=== PATIENT | female | born 1965 | race African-American/Black ===

== ENCOUNTER 2020-07-09 14:45 | Inpatient (IN) | payer SELFPAY ==
[2020-07-09 15:42] LABS: Hemoglobin 4.9 g/dL (12.0-16.0); Mean Corpuscular HGB CONC 36.3 g/dL (32.0-36.0); Mean Corpuscular Hemoglobin 41.8 pg (27.0-31.0); Platelet Count 32 thou/uL (130-400); RBC Distribution Width 12.6 % (11.5-14.5); Red Blood Cell (RBC) Count 1.17 mill/uL (4.20-5.40); White Blood Cell (WBC) Count 5.5 thou/uL (4.8-10.8)
[2020-07-09 15:55] LABS: Band 3 % (5-11); Eosinophils 1 % (0-10); Lymphocytes 21 % (21-51); MDiff Complete? YES; Macrocytosis SLIGHT = 6-15 cells (100X) (0-5/hpf); Metamyelocyte 1 % (0-0); Monocytes 5 % (0-10); Neutrophil 68 % (42-75); Nucleated RBC 1 % (0); Platelet Morphology Comment Appears Decreased; Polychromasia MODERATE = 3-4 cells (100X) (0-2/hpf); Reflex for Review?? NO
[2020-07-09 16:13] LABS: Chloride 98 mmol/L (98-107); Sodium 138 mmol/L (136-145)
[2020-07-09 16:14] LABS: Calcium 9.3 mg/dL (7.8-10.44)
[2020-07-09 16:15] LABS: Globulin 4.5 g/dL (2.4-3.5); Glucose 152 mg/dL (70-105); Protein, Total 7.5 g/dL (6.0-8.3)
[2020-07-09 16:16] LABS: Anion Gap 19 mmol/L (10-20); Bilirubin, Total 14.6 mg/dL (0.2-1.2); Carbon Dioxide 24 mmol/L (22-29)
[2020-07-09 16:18] LABS: Alkaline Phosphatase 116 U/L (40-110); Calc. Creatinine Clearance 0 mL/min (70-130)
[2020-07-09 16:19] LABS: BUN (Urea Nitrogen) 12 mg/dL (9.8-20.1)
[2020-07-09 16:20] LABS: AST (SGOT) 70 U/L (5-34); CKMB 0.5 ng/mL (0-6.6)
[2020-07-09 16:21] LABS: ALT (SGPT) 19 U/L (8-55); Lipase 14 U/L (8-78)
[2020-07-09 19:54] LABS: Troponin I 0.136 ng/mL (< 0.028)
[2020-07-09] MEDS ORDERED: Ondansetron ODT 4 MG TAB SL PRN (20:45)
[2020-07-09] MEDS ORDERED: Ondansetron PF 4 MG/2 ML Vial IVP PRN (20:45)
[2020-07-09] MEDS ORDERED: Acetaminophen 325 MG TAB PO PRN (20:45)
[2020-07-09 22:02] LABS: Hemoglobin 6.2 g/dL (12.0-16.0)
[2020-07-09 22:03] VITALS: BMI 23.3
[2020-07-09] MEDS ORDERED: Potassium Chloride 20 MEQ TAB PO SCH (22:15)
[2020-07-09] MEDS ORDERED: Sodium Chloride 0.9% (PF) 10 ML VIAL FS PRN (22:30)
[2020-07-09] MEDS ORDERED: Pantoprazole 40 MG VIAL IVP SCH (22:30)
[2020-07-09] MEDS: cefTRIAXone\\ROCEPHIN 1 GM in Sodium Chloride 0.9% 100 ML IVPB SCH (23:13)
[2020-07-09] MEDS: Octreotide Acetate 1,250 MCG in Sodium Chloride 0.9% 250 ML 250 ML IVPB SCH (23:35)
[2020-07-10 01:53] LABS: SARS-CoV-2 PCR by NAA Not Detected (NotDetected)
[2020-07-10] MEDS ORDERED: Electrolyte Replacement Protocol 1 EACH FS SCH (02:00)
[2020-07-10 05:09] LABS: Anion Gap 17 mmol/L (10-20); BUN (Urea Nitrogen) 12 mg/dL (9.8-20.1); Bilirubin, Direct 5.9 mg/dL (0.1-0.3); Calc. Creatinine Clearance 62 mL/min (70-130); Calcium 8.7 mg/dL (7.8-10.44); Carbon Dioxide 22 mmol/L (22-29); Chloride 100 mmol/L (98-107); Glucose 171 mg/dL (70-105); Potassium 3.5 mmol/L (3.5-5.1); Sodium 135 mmol/L (136-145)
[2020-07-10 05:19] LABS: Band 4 % (5-11); Hemoglobin 7.5 g/dL (12.0-16.0); Hypochromia SLIGHT = 6-15 cells (100X) (0-5/hpf); Lymphocytes 32 % (21-51); MDiff Complete? YES; Mean Corpuscular HGB CONC 35.8 g/dL (32.0-36.0); Mean Corpuscular Hemoglobin 38.6 pg (27.0-31.0); Mean Platelet Volume 8.1 fL (7.4-10.4); Monocytes 6 % (0-10); Neutrophil 58 % (42-75); Nucleated RBC 1 % (0); Platelet Count 33 thou/uL (130-400); Platelet Morphology Comment Appears Decreased; RBC Distribution Width 15.7 % (11.5-14.5); Red Blood Cell (RBC) Count 1.94 mill/uL (4.20-5.40); White Blood Cell (WBC) Count 5.2 thou/uL (4.8-10.8)
[2020-07-10] MEDS ORDERED: Magnesium Sulfate 4 GM in Sodium Chloride 0.9% 250 ML 250 ML IVPB SCH (06:00)
[2020-07-10] MEDS ORDERED: Potassium Chloride 20 MEQ TAB PO SCH (06:30)
[2020-07-10 08:27] LABS: Reticulocyte Count 4.9 % (0.5-1.5)
[2020-07-10 08:45] LABS: Iron 51 ug/dL (50-170); Iron Binding Capacity, Total 91 mcg/dL (265-497)
[2020-07-10] MEDS ORDERED: Furosemide 40 MG/4 ML VIAL SLOW IVP SCH (08:45)
[2020-07-10] MEDS: Pantoprazole 40 MG VIAL IVP SCH (08:53)
[2020-07-10 09:09] LABS: Ferritin 1103.34 ng/mL (10-291)
[2020-07-10] MEDS ORDERED: Furosemide 20 MG/2 ML VIAL SLOW IVP SCH (10:15)
[2020-07-10] MEDS: cefTRIAXone\\ROCEPHIN 1 GM in Sodium Chloride 0.9% 100 ML IVPB SCH (23:45)
[2020-07-11] MEDS: Octreotide Acetate 1,250 MCG in Sodium Chloride 0.9% 250 ML 250 ML IVPB SCH (00:49)
[2020-07-11 04:34] LABS: INR-International Normal Ratio 3.2; Prothrombin Time 33.3 sec (12.0-14.7)
[2020-07-11 04:44] LABS: #Eosinphils 0.1 thou/uL (0.0-0.7); #Lymphocytes 1.5 thou/uL (1.20-3.40); #Monocytes 0.6 thou/uL (0.11-0.59); #Neutrophils 2.5 thou/uL (1.40-6.50); %Basophils 0.5 % (0.0-1.0); %Eosinophils 1.6 % (0.0-10.0); %Lymphocytes 31.4 % (21.0-51.0); %Monocytes 13.2 % (0.0-10.0); %Neutrophils 53.3 % (42.0-75.0); Mean Corpuscular HGB CONC 35.8 g/dL (32.0-36.0); Mean Corpuscular Hemoglobin 39.1 pg (27.0-31.0); Mean Platelet Volume 8.1 fL (7.4-10.4); Platelet Count 36 thou/uL (130-400); RBC Distribution Width 15.6 % (11.5-14.5); White Blood Cell (WBC) Count 4.7 thou/uL (4.8-10.8)
[2020-07-11 04:53] LABS: ALT (SGPT) 16 U/L (8-55); AST (SGOT) 46 U/L (5-34); Albumin 2.4 g/dL (3.5-5.0); Alkaline Phosphatase 91 U/L (40-110); Anion Gap 17 mmol/L (10-20); BUN (Urea Nitrogen) 11 mg/dL (9.8-20.1); Bilirubin, Total 11.8 mg/dL (0.2-1.2); Calc. Creatinine Clearance 63 mL/min (70-130); Calcium 8.4 mg/dL (7.8-10.44); Carbon Dioxide 21 mmol/L (22-29); Chloride 103 mmol/L (98-107); Globulin 4.2 g/dL (2.4-3.5); Glucose 140 mg/dL (70-105); Magnesium 1.5 mg/dL (1.6-2.6); Potassium 3.7 mmol/L (3.5-5.1); Protein, Total 6.6 g/dL (6.0-8.3); Sodium 137 mmol/L (136-145)
[2020-07-11] MEDS ORDERED: Magnesium 2 GM/50 ML 2 GM in Premix Bag 1 BAG IVPB SCH (06:30)
[2020-07-11] MEDS: Spironolactone 100 MG TAB PO SCH (08:14)
[2020-07-11] MEDS: Furosemide 40 MG TAB PO SCH (08:14)
[2020-07-11] MEDS: Pantoprazole 40 MG VIAL IVP SCH (08:15)
[2020-07-11] MEDS ORDERED: Midazolam HCl 5 mg/5 ml Vial ONE (09:33)
[2020-07-11] MEDS ORDERED: Lidocaine 1% PF 5 ML VIAL ONE (09:40)
[2020-07-11] MEDS ORDERED: PROPOFOL 200 MG/20 ML VIAL ONE (09:40)
[2020-07-11] MEDS ORDERED: Promethazine HCl 25 MG/ML VIAL SLOW IVP PRN (09:50)
[2020-07-11] MEDS ORDERED: Ondansetron HCl/PF 4 MG/2 ML Vial IVP PRN (09:50)
[2020-07-11] MEDS ORDERED: Promethazine HCl 25 MG/ML VIAL IM PRN (09:50)
[2020-07-11] MEDS ORDERED: Phytonadione 10 MG/ML AMP SC SCH (10:09)
[2020-07-12 04:38] LABS: #Eosinphils 0.1 thou/uL (0.0-0.7); #Lymphocytes 1.4 thou/uL (1.20-3.40); #Monocytes 0.7 thou/uL (0.11-0.59); #Neutrophils 3.8 thou/uL (1.40-6.50); %Basophils 0.5 % (0.0-1.0); %Eosinophils 0.9 % (0.0-10.0); %Lymphocytes 23.7 % (21.0-51.0); %Monocytes 11.7 % (0.0-10.0); %Neutrophils 63.1 % (42.0-75.0); Hemoglobin 7.6 g/dL (12.0-16.0); Mean Corpuscular HGB CONC 34.8 g/dL (32.0-36.0); Mean Corpuscular Hemoglobin 38.4 pg (27.0-31.0); Mean Platelet Volume 7.7 fL (7.4-10.4); Platelet Count 43 thou/uL (130-400); RBC Distribution Width 15.9 % (11.5-14.5); Red Blood Cell (RBC) Count 1.97 mill/uL (4.20-5.40)
[2020-07-12 04:39] LABS: INR-International Normal Ratio 3.2; Prothrombin Time 33.6 sec (12.0-14.7)
[2020-07-12 04:50] LABS: Anion Gap 17 mmol/L (10-20); BUN (Urea Nitrogen) 11 mg/dL (9.8-20.1); Calc. Creatinine Clearance 59 mL/min (70-130); Carbon Dioxide 22 mmol/L (22-29); Chloride 102 mmol/L (98-107); Potassium 3.8 mmol/L (3.5-5.1); Sodium 137 mmol/L (136-145)
[2020-07-12 04:51] LABS: Calcium 8.7 mg/dL (7.8-10.44); Glucose 136 mg/dL (70-105)
[2020-07-12] MEDS: Spironolactone 100 MG TAB PO SCH (09:41)
[2020-07-12] MEDS: Furosemide 40 MG TAB PO SCH (09:41)
[2020-07-12] MEDS: Phytonadione 10 MG/ML AMP SC SCH (09:42)
[2020-07-12] MEDS: Pantoprazole 40 MG VIAL IVP SCH (09:42)
[2020-07-13 05:02] LABS: INR-International Normal Ratio 3.4; Prothrombin Time 35.3 sec (12.0-14.7)
[2020-07-13 05:13] LABS: Mean Corpuscular HGB CONC 34.2 g/dL (32.0-36.0); Mean Platelet Volume 7.8 fL (7.4-10.4); Platelet Count 40 thou/uL (130-400); RBC Distribution Width 16.5 % (11.5-14.5); Red Blood Cell (RBC) Count 2.15 mill/uL (4.20-5.40); White Blood Cell (WBC) Count 5.4 thou/uL (4.8-10.8)
[2020-07-13 05:22] LABS: Anion Gap 11 mmol/L (10-20); BUN (Urea Nitrogen) 12 mg/dL (9.8-20.1); Calc. Creatinine Clearance 71 mL/min (70-130); Calcium 8.5 mg/dL (7.8-10.44); Carbon Dioxide 28 mmol/L (22-29); Chloride 100 mmol/L (98-107); Glucose 143 mg/dL (70-105); Magnesium 1.3 mg/dL (1.6-2.6); Potassium 3.6 mmol/L (3.5-5.1); Sodium 135 mmol/L (136-145)
[2020-07-13 05:37] LABS: Eosinophils 3 % (0-10); Lymphocytes 27 % (21-51); MDiff Complete? YES; Monocytes 12 % (0-10); Neutrophil 58 % (42-75); Platelet Morphology Comment Appears Decreased
[2020-07-13] MEDS ORDERED: Magnesium Sulfate 4 GM in Sodium Chloride 0.9% 250 ML 250 ML IVPB SCH (07:00)
[2020-07-13] MEDS: Furosemide 40 MG TAB PO SCH (08:38)
[2020-07-13] MEDS: Spironolactone 100 MG TAB PO SCH (08:40)
[2020-07-13] MEDS: Phytonadione 10 MG/ML AMP SC SCH (08:40)
[2020-07-14 05:49] LABS: Anion Gap 14 mmol/L (10-20); BUN (Urea Nitrogen) 14 mg/dL (9.8-20.1); Calc. Creatinine Clearance 74 mL/min (70-130); Calcium 8.7 mg/dL (7.8-10.44); Carbon Dioxide 23 mmol/L (22-29); Chloride 103 mmol/L (98-107); Glucose 125 mg/dL (70-105); Potassium 3.8 mmol/L (3.5-5.1); Sodium 136 mmol/L (136-145)
[2020-07-14 05:59] LABS: Band 10 % (5-11); Eosinophils 1 % (0-10); Hemoglobin 8.1 g/dL (12.0-16.0); Hypochromia SLIGHT = 6-15 cells (100X) (0-5/hpf); Lymphocytes 33 % (21-51); MDiff Complete? YES; Macrocytosis SLIGHT = 6-15 cells (100X) (0-5/hpf); Mean Corpuscular HGB CONC 35.3 g/dL (32.0-36.0); Mean Corpuscular Hemoglobin 37.9 pg (27.0-31.0); Mean Platelet Volume 8.5 fL (7.4-10.4); Monocytes 7 % (0-10); Neutrophil 49 % (42-75); Platelet Count 38 thou/uL (130-400); Platelet Morphology Comment Appears Decreased; RBC Distribution Width 15.8 % (11.5-14.5); Red Blood Cell (RBC) Count 2.14 mill/uL (4.20-5.40); Target Cells SLIGHT = 2-5 cells (100X) (0-1/hpf); White Blood Cell (WBC) Count 5.4 thou/uL (4.8-10.8)
[2020-07-14] MEDS ORDERED: Magnesium 2 GM/50 ML 2 GM in Premix Bag 1 BAG IVPB SCH (06:30)
[2020-07-14] MEDS: Spironolactone 100 MG TAB PO SCH (08:38)
[2020-07-14] MEDS: Furosemide 20 MG TAB PO SCH (08:38)
[2020-07-15 05:53] LABS: Albumin 2.5 g/dL (3.5-5.0); Carbon Dioxide 21 mmol/L (22-29); Chloride 107 mmol/L (98-107); Globulin 5.9 g/dL (2.4-3.5); Potassium 3.5 mmol/L (3.5-5.1); Sodium 140 mmol/L (136-145)
[2020-07-15 05:54] LABS: ALT (SGPT) 21 U/L (8-55); AST (SGOT) 44 U/L (5-34); Alkaline Phosphatase 92 U/L (40-110); Anion Gap 15 mmol/L (10-20); BUN (Urea Nitrogen) 14 mg/dL (9.8-20.1); Calc. Creatinine Clearance 86 mL/min (70-130); Calcium 8.6 mg/dL (7.8-10.44); Glucose 109 mg/dL (70-105); Lymphocytes 33 % (21-51); MDiff Complete? YES; Mean Corpuscular HGB CONC 34.7 g/dL (32.0-36.0); Mean Corpuscular Hemoglobin 37.3 pg (27.0-31.0); Mean Platelet Volume 8.4 fL (7.4-10.4); Monocytes 6 % (0-10); Neutrophil 61 % (42-75); Platelet Count 38 thou/uL (130-400); Platelet Morphology Comment Appears Decreased; Protein, Total 6.8 g/dL (6.0-8.3); RBC Distribution Width 15.8 % (11.5-14.5); Red Blood Cell (RBC) Count 2.13 mill/uL (4.20-5.40); White Blood Cell (WBC) Count 5.1 thou/uL (4.8-10.8)
[2020-07-15] MEDS ORDERED: Magnesium 2 GM/50 ML 2 GM in Premix Bag 1 BAG IVPB SCH (08:15)
[2020-07-15] MEDS ORDERED: Potassium Chloride 20 MEQ TAB PO SCH (08:15)
[2020-07-15] MEDS: Spironolactone 100 MG TAB PO SCH (08:59)
[2020-07-15] MEDS: Furosemide 20 MG TAB PO SCH (09:00)
[2020-07-15] MEDS ORDERED: Spironolactone 100 MG TAB PO SCH (09:00)
[2020-07-16 04:34] LABS: Anisocytosis SLIGHT = 6-15 cells (100X) (0-5/hpf); Band 9 % (5-11); Burr Cells SLIGHT = 2-5 cells (100X) (0-1/hpf); Hemoglobin 7.2 g/dL (12.0-16.0); Lymphocytes 40 % (21-51); MDiff Complete? YES; Macrocytosis MODERATE=16-30 cells (100X) (0-5/hpf); Mean Corpuscular HGB CONC 35.1 g/dL (32.0-36.0); Mean Corpuscular Hemoglobin 37.1 pg (27.0-31.0); Mean Platelet Volume 8.1 fL (7.4-10.4); Monocytes 6 % (0-10); Neutrophil 44 % (42-75); Platelet Count 34 thou/uL (130-400); Platelet Morphology Comment Appears Decreased; RBC Distribution Width 15.2 % (11.5-14.5); Reactive Lymphocytes 1 % (0-10); Red Blood Cell (RBC) Count 1.92 mill/uL (4.20-5.40); Target Cells SLIGHT = 2-5 cells (100X) (0-1/hpf); White Blood Cell (WBC) Count 5.9 thou/uL (4.8-10.8)
[2020-07-16 04:35] LABS: Anion Gap 11 mmol/L (10-20); BUN (Urea Nitrogen) 12 mg/dL (9.8-20.1); Calc. Creatinine Clearance 83 mL/min (70-130); Calcium 8.6 mg/dL (7.8-10.44); Carbon Dioxide 23 mmol/L (22-29); Chloride 108 mmol/L (98-107); Glucose 121 mg/dL (70-105); Magnesium 1.9 mg/dL (1.6-2.6); Potassium 4.2 mmol/L (3.5-5.1); Sodium 138 mmol/L (136-145)
[2020-07-16] MEDS ORDERED: Magnesium 2 GM/50 ML 2 GM in Premix Bag 1 BAG IVPB SCH (06:30)
[2020-07-16] MEDS: Furosemide 20 MG TAB PO SCH (08:56)
[2020-07-16] MEDS: Spironolactone 100 MG TAB PO SCH (08:56)
[2020-07-16 12:38] VITALS: BP 131/66; TEMP 98.3
== END 2020-07-16 13:57 | disposition home or self-care (01) | DRG 433 ==
LOC: ERS 14:45 → 2NO 19:28
PROVIDERS: ADMIT Internal Medicine; ATTEND Internal Medicine
PROC: 30233N1 Transfusion of Nonautologous Red Blood Cells into Peripheral Vein, Percutaneous Approach (ICD-10-PCS; principal; 2020-07-09)
PROC: 0DJ08ZZ Inspection of Upper Intestinal Tract, Via Natural or Artificial Opening Endoscopic (ICD-10-PCS; 2020-07-11)
DX: K70.31 Alcoholic cirrhosis of liver with ascites (principal); K76.6 Portal hypertension; Z20.822 Contact with and (suspected) exposure to COVID-19; E87.6 Hypokalemia; E83.42 Hypomagnesemia; D69.59 Other secondary thrombocytopenia; K31.89 Other diseases of stomach and duodenum; D50.0 Iron deficiency anemia secondary to blood loss (chronic); I95.9 Hypotension, unspecified; Z28.21 Immunization not carried out because of patient refusal; Z79.899 Other long term (current) drug therapy
CPT/HCPCS: 36415; 36430; 71045; 80048; 80053; 82105; 82140; 82247; 82274; 82553; 82607; 82728; 82746; 83540; 83550; 83615; 83690; 83735; 83880; 84484; 85025; 85046; 85610; 86850; 86900; 86901; 87635; 93005; 93306; 93970; C9113; J0696; J1940; J2250; J2354; J2704; J3430; J3475; J3490; J7050; P9016; U0003; U0005

== ENCOUNTER 2020-07-18 10:44 | Inpatient (IN) | payer SELFPAY ==
[2020-07-18] MEDS ORDERED: Rocuronium Bromide 10 MG/ML (10ML VIAL) ONE ×2 (11:30→14:41)
[2020-07-18] MEDS ORDERED: Fentanyl CADD 100 ML IV SCH (11:45)
[2020-07-18 11:47] LABS: ALT (SGPT) 23 U/L (8-55); AST (SGOT) 50 U/L (5-34); Albumin 3.1 g/dL (3.5-5.0); Alkaline Phosphatase 127 U/L (40-110); Anion Gap 18 mmol/L (10-20); BUN (Urea Nitrogen) 17 mg/dL (9.8-20.1); Bilirubin, Total 16.6 mg/dL (0.2-1.2); Calc. Creatinine Clearance 0 mL/min (70-130); Calcium 9.6 mg/dL (7.8-10.44); Carbon Dioxide 15 mmol/L (22-29); Chloride 111 mmol/L (98-107); Globulin 5.3 g/dL (2.4-3.5); Glucose 130 mg/dL (70-105); Lipase 6 U/L (8-78); Potassium 4.1 mmol/L (3.5-5.1); Protein, Total 8.4 g/dL (6.0-8.3); Sodium 140 mmol/L (136-145)
[2020-07-18 12:01] LABS: Bacteria/HPF None Seen HPF (None Seen); Bilirubin 1+ (Negative); Blood, Urine 2+ (Negative); Clarity Clear (Clear); Glucose, Urine (Dipstick) Normal (Negative); Ketone, Urine Negative (Negative); Leukocyte Negative Leu/uL (Negative); Nitrite Negative (Negative); Protein, Urine (Dipstick) 10 mg/dL (Neg-Trace); Specific Gravity, Urine 1.023 (1.002-1.036); Squamous Epithelial 0-3 HPF (0-3); Urobilinogen Greater than 12 mg/dL (Less than 2); WBC/HPF 0-3 HPF (0-3); pH, Urine 7.5 (5.0-9.0)
[2020-07-18 12:11] LABS: CO2 Tension 25.9 mmHg (35.0-45.0); pH, Arterial 7.43 (7.35-7.45)
[2020-07-18 12:12] LABS: Actual Bicarbonate (HCO3a) 16.9 mEq/L (22-28); Base Excess (BEa) -6.5 mEq/L (-2.0 to +3.0); Calcium, Ionized (arterial) 1.25 mmol/L (1.12-1.30); Carboxyhemoglobin (COHb) 1.1 gm% (0.0-3.0); O2 Tension (PaO2), arterial 105.4 mmHg (80.0-100.0); Potassium - ABG Lab 3.47 mmol/L (3.70-5.30)
[2020-07-18 12:13] LABS: ALV-art Gradient 147.425 mmHg (0-20); Analyzer IN Cardio ER; Puncture Site RRA
[2020-07-18 12:35] LABS: Hemoglobin 8.9 g/dL (12.0-16.0); Mean Corpuscular HGB CONC 34.4 g/dL (32.0-36.0); Mean Corpuscular Hemoglobin 36.1 pg (27.0-31.0); Mean Platelet Volume 8.7 fL (7.4-10.4); Platelet Count 37 thou/uL (130-400); RBC Distribution Width 15.7 % (11.5-14.5); Red Blood Cell (RBC) Count 2.45 mill/uL (4.20-5.40); White Blood Cell (WBC) Count 6.5 thou/uL (4.8-10.8)
[2020-07-18] MEDS ORDERED: Iopamidol-370 76% 500 ML 1 ML ONE (12:50)
[2020-07-18] MEDS ORDERED: Pantoprazole 40 MG VIAL ONE (12:53)
[2020-07-18 12:57] LABS: Band 40 % (5-11); Burr Cells SLIGHT = 2-5 cells (100X) (0-1/hpf); Lymphocytes 14 % (21-51); MDiff Complete? YES; Macrocytosis SLIGHT = 6-15 cells (100X) (0-5/hpf); Monocytes 12 % (0-10); Neutrophil 30 % (42-75); Platelet Morphology Comment Appears Decreased; Polychromasia SLIGHT = 2-3 cells (100X) (0-2/hpf); Reactive Lymphocytes 4 % (0-10); Schistocytes SLIGHT = 2-5 cells (100X) (0-1/hpf); Target Cells SLIGHT = 2-5 cells (100X) (0-1/hpf); Tear Drops SLIGHT = 2-5 cells (100X) (0-1/hpf)
[2020-07-18] MEDS ORDERED: Piperacillin/Tazobactam 4.5 GM VIAL ONE (13:18)
[2020-07-18 13:21] LABS: Acetaminophen Less than 6.0 mcg/mL (10.0-30.0); Alcohol Less than 10 mg/dL (Less than 10); Salicylate Less than 8.0 mg/dL (15.0-30.0)
[2020-07-18 13:22] LABS: INR-International Normal Ratio 2.6; PTT 49.9 sec (22.9-36.1); Prothrombin Time 28.4 sec (12.0-14.7)
[2020-07-18 13:44] LABS: Amphetamine Not Detected (NotDetected); Barbiturates Screen Not Detected (NotDetected); Benzodiazepine Screen Not Detected (NotDetected); Cocaine Metabolite Screen Not Detected (NotDetected); Medtox Control Line Valid? VALID (VALID); Medtox Reader # READER 4; Methadone Not Detected (NotDetected); Methamphetamine Not Detected (NotDetected); Opiate Screen Not Detected (NotDetected); Oxycodone Screen Not Detected (NotDetected); Phencyclidine (PCP) Not Detected (NotDetected); THC/Cannabinoid Screen Not Detected (NotDetected); Tricyclic Screen Not Detected (NotDetected)
[2020-07-18 13:45] LABS: SARS-CoV-2 NAA Rapid Test Not Detected (NotDetected)
[2020-07-18 13:45] LABS: CKMB 1.1 ng/mL (0-6.6)
[2020-07-18 15:49] LABS: Lactic Acid 3.8 mmol/L (0.5-2.2)
[2020-07-18] MEDS ORDERED: Acetaminophen 500 MG TAB PO PRN (15:54)
[2020-07-18] MEDS ORDERED: Acetaminophen 650 MG Suppository PR PRN (15:54)
[2020-07-18] MEDS ORDERED: Ventilator Sedation Protocol 1 EACH FS ONE (15:54)
[2020-07-18] MEDS ORDERED: Ondansetron ODT 4 MG TAB PO PRN (15:54)
[2020-07-18] MEDS ORDERED: Phytonadione 10 MG/ML AMP SLOW IVP SCH (16:00)
[2020-07-18] MEDS ORDERED: Propofol 1,000 MG/100 ML VIAL IV PRN (16:15)
[2020-07-18] MEDS ORDERED: DISCONTINUE PREVIOUS NARCOTIC PAIN MEDICATIONS AND BENZODIAZEPINES FS SCH (16:15)
[2020-07-18] MEDS ORDERED: Propofol BOLUS 1,000 MG/100 ML VIAL IV PRN (16:15)
[2020-07-18] MEDS ORDERED: Morphine 2 MG/ML VIAL SLOW IVP PRN (16:15)
[2020-07-18] MEDS ORDERED: Fentanyl BOLUS 250 ML IVPB PRN (16:15)
[2020-07-18] MEDS ORDERED: Lorazepam 2 MG/ML VIAL SLOW IVP PRN (16:15)
[2020-07-18] MEDS: Cefepime 2 GM in Sodium Chloride 0.9% 100 ML IVPB SCH ×2 (16:18→23:49)
[2020-07-18] MEDS: Sodium Chloride 0.9% 1,000 ML IV SCH (16:18)
[2020-07-18] MEDS: Thiamine HCl 200 MG/2 ML VIAL SLOW IVP SCH (16:38)
[2020-07-18] MEDS ORDERED: Vancomycin 1.5 GRAM/300 ML BAG 1.5 GM in Premix Bag 1 BAG IVPB SCH (17:00)
[2020-07-18 19:41] LABS: Lactic Acid 4.8 mmol/L (0.5-2.2)
[2020-07-18] MEDS ORDERED: Vancomycin HCl 1 GM in Sodium Chloride 0.9% 250 ML 300 ML IVPB SCH (21:00)
[2020-07-18 21:03] LABS: ALT (SGPT) 23 U/L (8-55); AST (SGOT) 44 U/L (5-34); Albumin 2.8 g/dL (3.5-5.0); Alkaline Phosphatase 108 U/L (40-110); Anion Gap 18 mmol/L (10-20); BUN (Urea Nitrogen) 14 mg/dL (9.8-20.1); Bilirubin, Total 16.5 mg/dL (0.2-1.2); Calc. Creatinine Clearance 84 mL/min (70-130); Calcium 8.8 mg/dL (7.8-10.44); Carbon Dioxide 12 mmol/L (22-29); Chloride 115 mmol/L (98-107); Globulin 4.8 g/dL (2.4-3.5); Glucose 74 mg/dL (70-105); Magnesium 1.5 mg/dL (1.6-2.6); Potassium 3.7 mmol/L (3.5-5.1); Protein, Total 7.6 g/dL (6.0-8.3); Sodium 141 mmol/L (136-145)
[2020-07-18 21:24] LABS: CKMB 2.1 ng/mL (0-6.6)
[2020-07-18] MEDS ORDERED: Electrolyte Replacement Protocol 1 EACH FS SCH (23:00)
[2020-07-18] MEDS ORDERED: Magnesium Sulfate 4 GM in Sodium Chloride 0.9% 250 ML 250 ML IVPB SCH (23:15)
[2020-07-19] MEDS: Sodium Chloride 0.9% 1,000 ML IV SCH ×2 (02:09→08:37)
[2020-07-19 04:02] LABS: Band 41 % (5-11); Eosinophils 1 % (0-10); Hemoglobin 7.7 g/dL (12.0-16.0); Lymphocytes 9 % (21-51); MDiff Complete? YES; Mean Corpuscular HGB CONC 33.5 g/dL (32.0-36.0); Mean Corpuscular Hemoglobin 35.4 pg (27.0-31.0); Mean Platelet Volume 8.9 fL (7.4-10.4); Monocytes 10 % (0-10); Neutrophil 39 % (42-75); Platelet Count 38 thou/uL (130-400); Platelet Morphology Comment Appears Decreased; RBC Distribution Width 15.5 % (11.5-14.5); Red Blood Cell (RBC) Count 2.17 mill/uL (4.20-5.40); White Blood Cell (WBC) Count 12.7 thou/uL (4.8-10.8)
[2020-07-19 04:09] LABS: ALT (SGPT) 22 U/L (8-55); AST (SGOT) 34 U/L (5-34); Albumin 2.4 g/dL (3.5-5.0); Alkaline Phosphatase 88 U/L (40-110); Anion Gap 14 mmol/L (10-20); BUN (Urea Nitrogen) 16 mg/dL (9.8-20.1); Bilirubin, Total 15.6 mg/dL (0.2-1.2); Calc. Creatinine Clearance 82 mL/min (70-130); Calcium 8.6 mg/dL (7.8-10.44); Carbon Dioxide 14 mmol/L (22-29); Chloride 116 mmol/L (98-107); Globulin 4.4 g/dL (2.4-3.5); Glucose 107 mg/dL (70-105); Magnesium 2.6 mg/dL (1.6-2.6); Protein, Total 6.8 g/dL (6.0-8.3); Sodium 140 mmol/L (136-145)
[2020-07-19] MEDS: Vancomycin 1 GM in Premix Bag 1 BAG IVPB SCH ×2 (05:20→16:37)
[2020-07-19 07:32] LABS: Actual Bicarbonate (HCO3a) 13.3 mEq/L (22-28); Base Excess (BEa) -10.3 mEq/L (-2.0 to +3.0); Calcium, Ionized (arterial) 1.22 mmol/L (1.12-1.30); O2 Tension (PaO2), arterial 167.3 mmHg (80.0-100.0); Potassium - ABG Lab 3.88 mmol/L (3.70-5.30)
[2020-07-19 07:33] LABS: ALV-art Gradient 90.275 mmHg (0-20); CO2 Tension 22.1 mmHg (35.0-45.0); Puncture Site RRA
[2020-07-19] MEDS ORDERED: DC Sedation Protocol FS ONE (07:41)
[2020-07-19] MEDS: Cefepime 2 GM in Sodium Chloride 0.9% 100 ML IVPB SCH ×3 (08:37→23:27)
[2020-07-19] MEDS ORDERED: Pantoprazole 40 MG VIAL IVP SCH (09:00)
[2020-07-19] MEDS: Thiamine HCl 200 MG/2 ML VIAL SLOW IVP SCH (16:37)
[2020-07-19] MEDS: Pantoprazole 40 MG VIAL IVP SCH (20:54)
[2020-07-20 04:33] LABS: Anion Gap 10 mmol/L (10-20); BUN (Urea Nitrogen) 19 mg/dL (9.8-20.1); Calc. Creatinine Clearance 86 mL/min (70-130); Calcium 8.7 mg/dL (7.8-10.44); Carbon Dioxide 16 mmol/L (22-29); Chloride 118 mmol/L (98-107); Glucose 110 mg/dL (70-105); Potassium 3.8 mmol/L (3.5-5.1); Sodium 140 mmol/L (136-145)
[2020-07-20] MEDS: Vancomycin 1 GM in Premix Bag 1 BAG IVPB SCH ×2 (05:16→17:50)
[2020-07-20 05:51] LABS: Anisocytosis SLIGHT = 6-15 cells (100X) (0-5/hpf); Band 26 % (5-11); Hemoglobin 6.3 g/dL (12.0-16.0); Lymphocytes 12 % (21-51); MDiff Complete? YES; Mean Corpuscular HGB CONC 33.6 g/dL (32.0-36.0); Mean Corpuscular Hemoglobin 35.3 pg (27.0-31.0); Mean Platelet Volume 9.3 fL (7.4-10.4); Monocytes 1 % (0-10); Neutrophil 61 % (42-75); Platelet Count 32 thou/uL (130-400); Platelet Morphology Comment Appears Decreased; RBC Distribution Width 15.1 % (11.5-14.5); Red Blood Cell (RBC) Count 1.78 mill/uL (4.20-5.40); White Blood Cell (WBC) Count 10.8 thou/uL (4.8-10.8)
[2020-07-20] MEDS: Sodium Chloride 0.9% 1,000 ML IV SCH ×2 (06:05→13:05)
[2020-07-20 07:14] LABS: Actual Bicarbonate (HCO3a) 17.5 mEq/L (22-28); Base Excess (BEa) -7.4 mEq/L (-2.0 to +3.0); CO2 Tension 32.5 mmHg (35.0-45.0); Carboxyhemoglobin (COHb) 1.4 gm% (0.0-3.0); O2 Tension (PaO2), arterial 187.3 mmHg (80.0-100.0); Potassium - ABG Lab 3.75 mmol/L (3.70-5.30); pH, Arterial 7.35 (7.35-7.45)
[2020-07-20 07:15] LABS: ALV-art Gradient 57.275 mmHg (0-20); Puncture Site RRA
[2020-07-20] MEDS: Cefepime 2 GM in Sodium Chloride 0.9% 100 ML IVPB SCH ×2 (09:39→16:18)
[2020-07-20] MEDS: Pantoprazole 40 MG VIAL IVP SCH ×2 (09:43→20:36)
[2020-07-20] MEDS ORDERED: DC Sedation Protocol FS ONE (12:22)
[2020-07-20] MEDS: Ondansetron PF 4 MG/2 ML Vial IVP PRN (16:41)
[2020-07-20] MEDS: Thiamine HCl 200 MG/2 ML VIAL SLOW IVP SCH (18:29)
[2020-07-21] MEDS: Cefepime 2 GM in Sodium Chloride 0.9% 100 ML IVPB SCH ×4 (00:15→23:55)
[2020-07-21 03:52] LABS: ALT (SGPT) 14 U/L (8-55); AST (SGOT) 23 U/L (5-34); Albumin 2.4 g/dL (3.5-5.0); Alkaline Phosphatase 72 U/L (40-110); Anion Gap 9 mmol/L (10-20); BUN (Urea Nitrogen) 19 mg/dL (9.8-20.1); Bilirubin, Total 13.7 mg/dL (0.2-1.2); Calc. Creatinine Clearance 88 mL/min (70-130); Calcium 8.6 mg/dL (7.8-10.44); Carbon Dioxide 17 mmol/L (22-29); Chloride 118 mmol/L (98-107); Globulin 3.9 g/dL (2.4-3.5); Glucose 106 mg/dL (70-105); Potassium 3.6 mmol/L (3.5-5.1); Protein, Total 6.3 g/dL (6.0-8.3); Sodium 140 mmol/L (136-145)
[2020-07-21 04:43] LABS: Band 12 % (5-11); Burr Cells SLIGHT = 2-5 cells (100X) (0-1/hpf); Lymphocytes 12 % (21-51); MDiff Complete? YES; Mean Corpuscular HGB CONC 34.8 g/dL (32.0-36.0); Mean Corpuscular Hemoglobin 35.8 pg (27.0-31.0); Mean Platelet Volume 9.8 fL (7.4-10.4); Monocytes 8 % (0-10); Neutrophil 68 % (42-75); Platelet Count 32 thou/uL (130-400); Platelet Morphology Comment Appears Decreased; RBC Distribution Width 15.2 % (11.5-14.5); Red Blood Cell (RBC) Count 1.97 mill/uL (4.20-5.40)
[2020-07-21] MEDS: Sodium Chloride 0.9% 1,000 ML IV SCH (04:49)
[2020-07-21] MEDS: Vancomycin 1 GM in Premix Bag 1 BAG IVPB SCH ×2 (04:49→17:44)
[2020-07-21 05:24] LABS: INR-International Normal Ratio 2.7; Prothrombin Time 29.6 sec (12.0-14.7)
[2020-07-21] MEDS: Pantoprazole 40 MG VIAL IVP SCH ×2 (08:45→20:51)
[2020-07-21] MEDS ORDERED: Spironolactone 100 MG TAB PO SCH (09:00)
[2020-07-21] MEDS: Furosemide 20 MG TAB PO SCH (09:42)
[2020-07-21] MEDS ORDERED: Bisacodyl 10 MG SUPP PR SCH (16:00)
[2020-07-21] MEDS: Thiamine HCl 200 MG/2 ML VIAL SLOW IVP SCH (17:50)
[2020-07-21] MEDS: Ondansetron PF 4 MG/2 ML Vial IVP PRN (18:17)
[2020-07-22 04:27] LABS: Anion Gap 9 mmol/L (10-20); BUN (Urea Nitrogen) 21 mg/dL (9.8-20.1); Calc. Creatinine Clearance 111 mL/min (70-130); Calcium 9.2 mg/dL (7.8-10.44); Carbon Dioxide 12 mmol/L (22-29); Chloride 119 mmol/L (98-107); Glucose 115 mg/dL (70-105); Potassium 3.4 mmol/L (3.5-5.1); Sodium 137 mmol/L (136-145)
[2020-07-22] MEDS: Vancomycin 1 GM in Premix Bag 1 BAG IVPB SCH (05:14)
[2020-07-22 05:53] LABS: #Eosinphils 0.1 thou/uL (0.0-0.7); #Lymphocytes 1.6 thou/uL (1.20-3.40); #Neutrophils 5.8 thou/uL (1.40-6.50); %Basophils 0.2 % (0.0-1.0); %Eosinophils 0.7 % (0.0-10.0); %Lymphocytes 18.7 % (21.0-51.0); %Monocytes 11.9 % (0.0-10.0); %Neutrophils 68.6 % (42.0-75.0); Anisocytosis SLIGHT = 6-15 cells (100X) (0-5/hpf); Hemoglobin 6.3 g/dL (12.0-16.0); Mean Corpuscular HGB CONC 35.4 g/dL (32.0-36.0); Mean Corpuscular Hemoglobin 36.2 pg (27.0-31.0); Platelet Count 9 thou/uL (130-400); Platelet Morphology Comment Appears Decreased; RBC Distribution Width 14.9 % (11.5-14.5); Red Blood Cell (RBC) Count 1.74 mill/uL (4.20-5.40); White Blood Cell (WBC) Count 8.5 thou/uL (4.8-10.8)
[2020-07-22 06:10] LABS: INR-International Normal Ratio 2.7; Prothrombin Time 29.7 sec (12.0-14.7)
[2020-07-22] MEDS ORDERED: Potassium Chloride 20 MEQ TAB PO SCH (06:30)
[2020-07-22] MEDS: Cefepime 2 GM in Sodium Chloride 0.9% 100 ML IVPB SCH (07:58)
[2020-07-22] MEDS: Furosemide 20 MG TAB PO SCH (09:39)
[2020-07-22] MEDS: Pantoprazole 40 MG VIAL IVP SCH ×2 (09:44→21:17)
[2020-07-22] MEDS: Spironolactone 100 MG TAB PO SCH ×2 (09:46→21:15)
[2020-07-22] MEDS: Thiamine HCl 200 MG/2 ML VIAL SLOW IVP SCH (17:42)
[2020-07-22] MEDS: Ondansetron PF 4 MG/2 ML Vial IVP PRN (23:21)
[2020-07-23 04:17] LABS: Anion Gap 11 mmol/L (10-20); BUN (Urea Nitrogen) 22 mg/dL (9.8-20.1); Calc. Creatinine Clearance 101 mL/min (70-130); Calcium 10.3 mg/dL (7.8-10.44); Carbon Dioxide 17 mmol/L (22-29); Chloride 116 mmol/L (98-107); Glucose 110 mg/dL (70-105); Sodium 141 mmol/L (136-145)
[2020-07-23 04:39] LABS: Band 19 % (5-11); Eosinophils 1 % (0-10); Hemoglobin 6.7 g/dL (12.0-16.0); Lymphocytes 9 % (21-51); MDiff Complete? YES; Mean Corpuscular HGB CONC 34.7 g/dL (32.0-36.0); Mean Corpuscular Hemoglobin 34.3 pg (27.0-31.0); Mean Corpuscular Volume 98.8 fL (78.0-98.0); Metamyelocyte 2 % (0-0); Monocytes 8 % (0-10); Myelocyte 2 % (0-0); Neutrophil 59 % (42-75); Platelet Count 40 thou/uL (130-400); Platelet Morphology Comment Appears Decreased; RBC Distribution Width 15.7 % (11.5-14.5); Red Blood Cell (RBC) Count 1.95 mill/uL (4.20-5.40); White Blood Cell (WBC) Count 10.7 thou/uL (4.8-10.8)
[2020-07-23] MEDS ORDERED: Potassium Chloride 20 MEQ TAB PO SCH (07:45)
[2020-07-23] MEDS ORDERED: Electrolyte Replacement Protocol FS PRN (07:45)
[2020-07-23] MEDS: Spironolactone 100 MG TAB PO SCH ×2 (09:09→21:46)
[2020-07-23] MEDS: Furosemide 20 MG TAB PO SCH (09:10)
[2020-07-23] MEDS: Pantoprazole 40 MG VIAL IVP SCH ×2 (09:10→21:44)
[2020-07-23 13:41] LABS: Potassium 3.1 mmol/L (3.5-5.1)
[2020-07-23] MEDS: Thiamine HCl 200 MG/2 ML VIAL SLOW IVP SCH (17:31)
[2020-07-23] MEDS: Ondansetron PF 4 MG/2 ML Vial IVP PRN (23:35)
[2020-07-24 04:44] LABS: Hemoglobin 6.6 g/dL (12.0-16.0); Mean Corpuscular Hemoglobin 34.8 pg (27.0-31.0); Mean Corpuscular Volume 99.3 fL (78.0-98.0); Mean Platelet Volume 8.8 fL (7.4-10.4); Platelet Count 49 thou/uL (130-400); RBC Distribution Width 16.2 % (11.5-14.5); Red Blood Cell (RBC) Count 1.89 mill/uL (4.20-5.40); White Blood Cell (WBC) Count 11.8 thou/uL (4.8-10.8)
[2020-07-24 04:57] LABS: Anion Gap 12 mmol/L (10-20); BUN (Urea Nitrogen) 23 mg/dL (9.8-20.1); Calc. Creatinine Clearance 85 mL/min (70-130); Calcium 11.2 mg/dL (7.8-10.44); Carbon Dioxide 18 mmol/L (22-29); Chloride 113 mmol/L (98-107); Glucose 120 mg/dL (70-105); Sodium 140 mmol/L (136-145)
[2020-07-24 05:28] LABS: Lymphocytes 24 % (21-51); MDiff Complete? YES; Metamyelocyte 1 % (0-0); Monocytes 8 % (0-10); Neutrophil 65 % (42-75); Nucleated RBC 1 % (0); Platelet Morphology Comment Appears Decreased; Reactive Lymphocytes 1 % (0-10)
[2020-07-24] MEDS ORDERED: Potassium Chloride 20 MEQ TAB PO SCH (06:30)
[2020-07-24] MEDS: Potassium Chloride 20 MEQ in Premix Bag 1 BAG IVPB SCH ×2 (09:13→15:15)
[2020-07-24] MEDS: Phytonadione 5 MG TAB PO SCH (09:13)
[2020-07-24] MEDS: Spironolactone 100 MG TAB PO SCH ×2 (09:13→21:15)
[2020-07-24] MEDS: Furosemide 20 MG TAB PO SCH (09:14)
[2020-07-24] MEDS: Pantoprazole 40 MG VIAL IVP SCH ×2 (09:16→21:15)
[2020-07-24 13:35] LABS: Lactic Acid 3.5 mmol/L (0.5-2.2)
[2020-07-24] MEDS ORDERED: Potassium Chloride 20 MEQ in Premix Bag 1 BAG IVPB SCH (15:00)
[2020-07-24] MEDS: Thiamine HCl 200 MG/2 ML VIAL SLOW IVP SCH (18:44)
[2020-07-25 05:49] LABS: Hemoglobin 5.4 g/dL (12.0-16.0); Mean Platelet Volume 8.8 fL (7.4-10.4); Platelet Count 41 thou/uL (130-400); RBC Distribution Width 16.7 % (11.5-14.5); Red Blood Cell (RBC) Count 1.49 mill/uL (4.20-5.40); White Blood Cell (WBC) Count 16.3 thou/uL (4.8-10.8)
[2020-07-25 06:04] LABS: Band 38 % (5-11); Eosinophils 2 % (0-10); Lymphocytes 5 % (21-51); MDiff Complete? YES; Metamyelocyte 1 % (0-0); Monocytes 15 % (0-10); Neutrophil 39 % (42-75); Nucleated RBC 4 % (0); Platelet Morphology Comment Appears Decreased
[2020-07-25 06:27] LABS: AST (SGOT) 30 U/L (5-34); BUN (Urea Nitrogen) 29 mg/dL (9.8-20.1); Bilirubin, Total 16.9 mg/dL (0.2-1.2)
[2020-07-25 06:59] LABS: Calcium 11.8 mg/dL (7.8-10.44)
[2020-07-25 07:06] LABS: ALT (SGPT) 19 U/L (8-55); Albumin 2.7 g/dL (3.5-5.0); Alkaline Phosphatase 71 U/L (40-110); Anion Gap 15 mmol/L (10-20); Calc. Creatinine Clearance 51 mL/min (70-130); Carbon Dioxide 15 mmol/L (22-29); Chloride 115 mmol/L (98-107); Globulin 3.8 g/dL (2.4-3.5); Glucose 97 mg/dL (70-105); Potassium 3.7 mmol/L (3.5-5.1); Protein, Total 6.5 g/dL (6.0-8.3); Sodium 141 mmol/L (136-145)
[2020-07-25] MEDS: Spironolactone 100 MG TAB PO SCH (09:35)
[2020-07-25] MEDS: Phytonadione 5 MG TAB PO SCH (09:37)
[2020-07-25] MEDS: Pantoprazole 40 MG VIAL IVP SCH ×2 (09:41→21:08)
[2020-07-25] MEDS: Furosemide 20 MG TAB PO SCH (10:49)
[2020-07-25 15:19] LABS: Hemoglobin 5.8 g/dL (12.0-16.0); Mean Corpuscular HGB CONC 36.1 g/dL (32.0-36.0); Mean Corpuscular Hemoglobin 35.6 pg (27.0-31.0); Mean Corpuscular Volume 98.9 fL (78.0-98.0); Mean Platelet Volume 8.8 fL (7.4-10.4); Platelet Count 37 thou/uL (130-400); RBC Distribution Width 15.6 % (11.5-14.5); Red Blood Cell (RBC) Count 1.63 mill/uL (4.20-5.40)
[2020-07-25] MEDS: Dextrose 5 %-0.45 % NaCl 1,000 ML IV SCH (15:21)
[2020-07-25 15:57] LABS: Anisocytosis SLIGHT = 6-15 cells (100X) (0-5/hpf); Band 14 % (5-11); Eosinophils 1 % (0-10); Lymphocytes 8 % (21-51); MDiff Complete? YES; Monocytes 4 % (0-10); Neutrophil 73 % (42-75); Nucleated RBC 8 % (0); Platelet Morphology Comment Appears Decreased; Polychromasia MODERATE = 3-4 cells (100X) (0-2/hpf); Tear Drops SLIGHT = 2-5 cells (100X) (0-1/hpf); White Blood Cell (WBC) Count 14.4 thou/uL (4.8-10.8)
[2020-07-25] MEDS: Thiamine HCl 200 MG/2 ML VIAL SLOW IVP SCH (17:19)
[2020-07-25 22:32] LABS: Hemoglobin 6.7 g/dL (12.0-16.0); Mean Corpuscular HGB CONC 35.7 g/dL (32.0-36.0); Mean Corpuscular Hemoglobin 34.3 pg (27.0-31.0); Mean Corpuscular Volume 96.1 fL (78.0-98.0); Mean Platelet Volume 9.4 fL (7.4-10.4); Platelet Count 36 thou/uL (130-400); RBC Distribution Width 15.8 % (11.5-14.5); Red Blood Cell (RBC) Count 1.95 mill/uL (4.20-5.40); White Blood Cell (WBC) Count 11.7 thou/uL (4.8-10.8)
[2020-07-25 22:53] LABS: Lymphocytes 17 % (21-51); MDiff Complete? YES; Metamyelocyte 5 % (0-0); Monocytes 3 % (0-10); Neutrophil 75 % (42-75); Nucleated RBC 1 % (0); Platelet Morphology Comment Appears Decreased
[2020-07-26] MEDS: Dextrose 5 %-0.45 % NaCl 1,000 ML IV SCH ×2 (02:14→14:47)
[2020-07-26 08:28] LABS: #Basophils 0.1 thou/uL (0.0-0.2); #Eosinphils 0.1 thou/uL (0.0-0.7); #Lymphocytes 2.7 thou/uL (1.20-3.40); #Monocytes 1.5 thou/uL (0.11-0.59); #Neutrophils 7.9 thou/uL (1.40-6.50); %Basophils 0.4 % (0.0-1.0); %Eosinophils 1.1 % (0.0-10.0); %Lymphocytes 21.7 % (21.0-51.0); %Monocytes 12.3 % (0.0-10.0); %Neutrophils 64.5 % (42.0-75.0); Hemoglobin 8.2 g/dL (12.0-16.0); Mean Corpuscular HGB CONC 35.1 g/dL (32.0-36.0); Mean Corpuscular Hemoglobin 32.3 pg (27.0-31.0); Mean Corpuscular Volume 92.1 fL (78.0-98.0); Mean Platelet Volume 8.5 fL (7.4-10.4); Platelet Count 36 thou/uL (130-400); RBC Distribution Width 16.5 % (11.5-14.5); Red Blood Cell (RBC) Count 2.53 mill/uL (4.20-5.40); White Blood Cell (WBC) Count 12.2 thou/uL (4.8-10.8)
[2020-07-26 08:30] LABS: Anion Gap 13 mmol/L (10-20); BUN (Urea Nitrogen) 33 mg/dL (9.8-20.1); Calc. Creatinine Clearance 60 mL/min (70-130); Carbon Dioxide 17 mmol/L (22-29); Chloride 115 mmol/L (98-107); Glucose 91 mg/dL (70-105); Potassium 3.5 mmol/L (3.5-5.1); Sodium 141 mmol/L (136-145)
[2020-07-26] MEDS ORDERED: Potassium Chloride 20 MEQ TAB PO SCH (08:45)
[2020-07-26] MEDS: Phytonadione 5 MG TAB PO SCH (10:06)
[2020-07-26] MEDS: Pantoprazole 40 MG VIAL IVP SCH ×2 (10:07→20:45)
[2020-07-26 14:10] LABS: Hemoglobin 8.2 g/dL (12.0-16.0); Mean Corpuscular HGB CONC 36.3 g/dL (32.0-36.0); Mean Corpuscular Hemoglobin 33.4 pg (27.0-31.0); Mean Corpuscular Volume 91.9 fL (78.0-98.0); Mean Platelet Volume 9.2 fL (7.4-10.4); Platelet Count 34 thou/uL (130-400); RBC Distribution Width 16.7 % (11.5-14.5); Red Blood Cell (RBC) Count 2.46 mill/uL (4.20-5.40)
[2020-07-26 14:25] LABS: Lactic Acid 1.9 mmol/L (0.5-2.2)
[2020-07-26 14:27] LABS: Anisocytosis SLIGHT = 6-15 cells (100X) (0-5/hpf); Band 15 % (5-11); Burr Cells SLIGHT = 2-5 cells (100X) (0-1/hpf); Eosinophils 1 % (0-10); Lymphocytes 4 % (21-51); MDiff Complete? YES; Monocytes 3 % (0-10); Neutrophil 77 % (42-75); Nucleated RBC 2 % (0); Platelet Morphology Comment Appears Decreased; Polychromasia MODERATE = 3-4 cells (100X) (0-2/hpf); Spherocytes SLIGHT = 1-5 cells (100X) (None Seen); White Blood Cell (WBC) Count 10.9 thou/uL (4.8-10.8)
[2020-07-26] MEDS ORDERED: Lactulose 10 GM/15 ML Oral Solution PR SCH ×2 (15:45→21:00)
[2020-07-26] MEDS: Thiamine HCl 200 MG/2 ML VIAL SLOW IVP SCH (16:52)
[2020-07-26 19:23] LABS: Actual Bicarbonate (HCO3a) 17.9 mEq/L (22-28); Analyzer IN Cardio OR; Base Excess (BEa) -4.9 mEq/L (-2.0 to +3.0); Calcium, Ionized (arterial) 1.51 mmol/L (1.12-1.30); Carboxyhemoglobin (COHb) 2.3 gm% (0.0-3.0); O2 Tension (PaO2), arterial 87.8 mmHg (80.0-100.0); Potassium - ABG Lab 3.38 mmol/L (3.70-5.30); pH, Arterial 7.47 (7.35-7.45)
[2020-07-26 19:28] LABS: ALV-art Gradient 30.805 mmHg (0-20); CO2 Tension 24.9 mmHg (35.0-45.0); Puncture Site LRA
[2020-07-26 22:55] LABS: Hemoglobin 8.8 g/dL (12.0-16.0); Mean Corpuscular HGB CONC 34.9 g/dL (32.0-36.0); Mean Corpuscular Hemoglobin 32.2 pg (27.0-31.0); Mean Corpuscular Volume 92.3 fL (78.0-98.0); Platelet Count 41 thou/uL (130-400); RBC Distribution Width 16.9 % (11.5-14.5); Red Blood Cell (RBC) Count 2.73 mill/uL (4.20-5.40); White Blood Cell (WBC) Count 11.3 thou/uL (4.8-10.8)
[2020-07-26 23:10] LABS: Band 10 % (5-11); Hypochromia SLIGHT = 6-15 cells (100X) (0-5/hpf); Lymphocytes 13 % (21-51); Monocytes 1 % (0-10); Neutrophil 76 % (42-75); Platelet Morphology Comment Appears Decreased
[2020-07-26 23:23] LABS: MDiff Complete? YES
[2020-07-27 01:04] LABS: Actual Bicarbonate (HCO3a) 19.7 mEq/L (22-28); Base Excess (BEa) -3.8 mEq/L (-2.0 to +3.0); CO2 Tension 29.7 mmHg (35.0-45.0); Calcium, Ionized (arterial) 1.49 mmol/L (1.12-1.30); Carboxyhemoglobin (COHb) 1.5 gm% (0.0-3.0); Hemoglobin (Hb) 8.7 g/dL (12.0-16.0); O2 Tension (PaO2), arterial 381.6 mmHg (80.0-100.0); Potassium - ABG Lab 3.39 mmol/L (3.70-5.30); pH, Arterial 7.44 (7.35-7.45)
[2020-07-27 01:07] LABS: ALV-art Gradient 294.275 mmHg (0-20); Puncture Site LBA
[2020-07-27 02:17] LABS: ALT (SGPT) 20 U/L (8-55); AST (SGOT) 28 U/L (5-34); Albumin 2.6 g/dL (3.5-5.0); Alkaline Phosphatase 70 U/L (40-110); Anion Gap 12 mmol/L (10-20); BUN (Urea Nitrogen) 32 mg/dL (9.8-20.1); Bilirubin, Total 19.2 mg/dL (0.2-1.2); Calc. Creatinine Clearance 73 mL/min (70-130); Calcium 11.4 mg/dL (7.8-10.44); Carbon Dioxide 19 mmol/L (22-29); Chloride 114 mmol/L (98-107); Globulin 3.7 g/dL (2.4-3.5); Magnesium 1.6 mg/dL (1.6-2.6); Potassium 3.5 mmol/L (3.5-5.1); Protein, Total 6.3 g/dL (6.0-8.3); Sodium 141 mmol/L (136-145)
[2020-07-27 02:19] LABS: Glucose 153 mg/dL (70-105)
[2020-07-27 04:16] LABS: #Basophils 0.1 thou/uL (0.0-0.2); #Monocytes 0.8 thou/uL (0.11-0.59); %Basophils 0.7 % (0.0-1.0); %Eosinophils 0.3 % (0.0-10.0); %Lymphocytes 10.1 % (21.0-51.0); %Monocytes 7.8 % (0.0-10.0); %Neutrophils 81.1 % (42.0-75.0); Hemoglobin 7.9 g/dL (12.0-16.0); Mean Corpuscular HGB CONC 36.3 g/dL (32.0-36.0); Mean Corpuscular Hemoglobin 33.5 pg (27.0-31.0); Mean Corpuscular Volume 92.5 fL (78.0-98.0); Mean Platelet Volume 8.5 fL (7.4-10.4); Platelet Count 33 thou/uL (130-400); RBC Distribution Width 17.6 % (11.5-14.5); Red Blood Cell (RBC) Count 2.35 mill/uL (4.20-5.40); White Blood Cell (WBC) Count 9.9 thou/uL (4.8-10.8)
[2020-07-27 04:28] LABS: Anion Gap 10 mmol/L (10-20); BUN (Urea Nitrogen) 32 mg/dL (9.8-20.1); Calc. Creatinine Clearance 70 mL/min (70-130); Calcium 11.2 mg/dL (7.8-10.44); Carbon Dioxide 20 mmol/L (22-29); Chloride 113 mmol/L (98-107); Glucose 144 mg/dL (70-105); Potassium 3.4 mmol/L (3.5-5.1); Sodium 140 mmol/L (136-145)
[2020-07-27] MEDS: Dextrose 5 %-0.45 % NaCl 1,000 ML IV SCH ×2 (05:33→17:40)
[2020-07-27] MEDS ORDERED: Magnesium 2 GM/50 ML 2 GM in Premix Bag 1 BAG IVPB SCH (06:15)
[2020-07-27] MEDS ORDERED: Potassium Chloride 20 MEQ TAB PO SCH ×2 (06:30→13:45)
[2020-07-27 07:29] LABS: Base Excess (BEa) -2.6 mEq/L (-2.0 to +3.0); Calcium, Ionized (arterial) 1.45 mmol/L (1.12-1.30); Carboxyhemoglobin (COHb) 1.3 gm% (0.0-3.0); O2 Tension (PaO2), arterial 187.8 mmHg (80.0-100.0); Potassium - ABG Lab 3.03 mmol/L (3.70-5.30)
[2020-07-27] MEDS ORDERED: Potassium Chloride 40 MEQ in Premix Bag 1 BAG IVPB SCH (07:45)
[2020-07-27] MEDS: Pantoprazole 40 MG VIAL IVP SCH ×2 (09:11→20:37)
[2020-07-27 12:40] LABS: CO2 Tension 18.8 mmHg (35.0-45.0); Puncture Site LRA
[2020-07-27] MEDS ORDERED: Potassium Chloride 40 MEQ in Sodium Chloride 0.9% 250 ML 250 ML IVPB SCH (16:00)
[2020-07-27] MEDS: Thiamine HCl 200 MG/2 ML VIAL SLOW IVP SCH (17:40)
[2020-07-28] MEDS: Thiamine HCl 200 MG/2 ML VIAL SLOW IVP SCH (02:32)
[2020-07-28] MEDS: Multivitamins, Adult 10 ML, Folic Acid 1 MG in Dextrose 5 %-0.45 % NaCl 1,000 ML IV SCH (02:32)
[2020-07-28 04:20] LABS: Hemoglobin 6.9 g/dL (12.0-16.0); Mean Corpuscular HGB CONC 34.9 g/dL (32.0-36.0); Mean Corpuscular Hemoglobin 33.6 pg (27.0-31.0); Mean Corpuscular Volume 96.2 fL (78.0-98.0); Red Blood Cell (RBC) Count 2.05 mill/uL (4.20-5.40); White Blood Cell (WBC) Count 14.6 thou/uL (4.8-10.8)
[2020-07-28 04:34] LABS: Anion Gap 15 mmol/L (10-20); BUN (Urea Nitrogen) 29 mg/dL (9.8-20.1); Calc. Creatinine Clearance 70 mL/min (70-130); Calcium 10.1 mg/dL (7.8-10.44); Carbon Dioxide 15 mmol/L (22-29); Chloride 117 mmol/L (98-107); Glucose 226 mg/dL (70-105); Potassium 3.5 mmol/L (3.5-5.1); Sodium 143 mmol/L (136-145)
[2020-07-28 04:35] LABS: ALT (SGPT) 20 U/L (8-55); AST (SGOT) 26 U/L (5-34); Albumin 2.3 g/dL (3.5-5.0); Alkaline Phosphatase 72 U/L (40-110); Bilirubin, Direct 7.6 mg/dL (0.1-0.3); Bilirubin, Total 19.1 mg/dL (0.2-1.2); Protein, Total 5.5 g/dL (6.0-8.3)
[2020-07-28 04:38] LABS: Anisocytosis SLIGHT = 6-15 cells (100X) (0-5/hpf); Lymphocytes 3 % (21-51); MDiff Complete? YES; Mean Platelet Volume 9.5 fL (7.4-10.4); Metamyelocyte 1 % (0-0); Neutrophil 96 % (42-75); Platelet Count 30 thou/uL (130-400); Platelet Morphology Comment Appears Decreased; RBC Distribution Width 22.2 % (11.5-14.5)
[2020-07-28] MEDS ORDERED: Potassium Chloride 40 MEQ in Sodium Chloride 0.9% 250 ML 250 ML IVPB SCH (06:30)
[2020-07-28] MEDS ORDERED: Magnesium 2 GM/50 ML 2 GM in Premix Bag 1 BAG IVPB SCH (06:30)
[2020-07-28 07:16] LABS: Base Excess (BEa) -2.6 mEq/L (-2.0 to +3.0); Carboxyhemoglobin (COHb) 2.4 gm% (0.0-3.0); Hemoglobin (Hb) 7.2 g/dL (12.0-16.0); O2 Tension (PaO2), arterial 220.7 mmHg (80.0-100.0); Potassium - ABG Lab 3.33 mmol/L (3.70-5.30)
[2020-07-28 07:18] LABS: ALV-art Gradient 41.875 mmHg (0-20); CO2 Tension 18.1 mmHg (35.0-45.0); Puncture Site RRA; pH, Arterial 7.62 (7.35-7.45)
[2020-07-28] MEDS: Rifaximin 550 MG TAB PO SCH ×2 (08:02→20:06)
[2020-07-28] MEDS: Pantoprazole 40 MG VIAL IVP SCH ×2 (08:02→20:06)
[2020-07-28] MEDS: Albumin 25% 25 GM/100 ML BOT IVPB SCH ×3 (08:15→20:06)
[2020-07-28 11:12] LABS: #Monocytes 1.4 thou/uL (0.11-0.59); #Neutrophils 10.7 thou/uL (1.40-6.50); %Basophils 0.2 % (0.0-1.0); %Eosinophils 0.3 % (0.0-10.0); %Monocytes 10.1 % (0.0-10.0); %Neutrophils 75.4 % (42.0-75.0); Hemoglobin 6.3 g/dL (12.0-16.0); Mean Corpuscular HGB CONC 33.5 g/dL (32.0-36.0); Mean Corpuscular Hemoglobin 32.7 pg (27.0-31.0); Mean Corpuscular Volume 97.6 fL (78.0-98.0); Mean Platelet Volume 9.9 fL (7.4-10.4); Platelet Count 29 thou/uL (130-400); RBC Distribution Width 22.9 % (11.5-14.5); Red Blood Cell (RBC) Count 1.93 mill/uL (4.20-5.40); White Blood Cell (WBC) Count 14.2 thou/uL (4.8-10.8)
[2020-07-28] MEDS ORDERED: Sodium Chloride 0.9% 500 ML IV SCH (11:30)
[2020-07-28] MEDS: Sodium Chloride 0.9% 1,000 ML IV SCH (12:52)
[2020-07-29] MEDS: Multivitamins, Adult 10 ML, Folic Acid 1 MG in Dextrose 5 %-0.45 % NaCl 1,000 ML IV SCH (01:46)
[2020-07-29] MEDS: Thiamine HCl 200 MG/2 ML VIAL SLOW IVP SCH (01:54)
[2020-07-29 04:54] LABS: Prothrombin Time 45.4 sec (12.0-14.7)
[2020-07-29 04:55] LABS: Hemoglobin 6.2 g/dL (12.0-16.0); Mean Corpuscular HGB CONC 33.7 g/dL (32.0-36.0); Mean Corpuscular Hemoglobin 32.2 pg (27.0-31.0); Mean Corpuscular Volume 95.6 fL (78.0-98.0); Mean Platelet Volume 9.3 fL (7.4-10.4); Platelet Count 23 thou/uL (130-400); RBC Distribution Width 21.6 % (11.5-14.5); Red Blood Cell (RBC) Count 1.94 mill/uL (4.20-5.40); White Blood Cell (WBC) Count 14.6 thou/uL (4.8-10.8)
[2020-07-29 05:02] LABS: INR-International Normal Ratio 4.7
[2020-07-29 05:15] LABS: Band 18 % (5-11); Eosinophils 1 % (0-10); Hypochromia SLIGHT = 6-15 cells (100X) (0-5/hpf); Lymphocytes 8 % (21-51); MDiff Complete? YES; Monocytes 9 % (0-10); Neutrophil 64 % (42-75); Platelet Morphology Comment Appears Adequate
[2020-07-29 05:16] LABS: ALT (SGPT) 19 U/L (8-55); AST (SGOT) 28 U/L (5-34); Albumin 2.9 g/dL (3.5-5.0); Alkaline Phosphatase 67 U/L (40-110); Anion Gap 12 mmol/L (10-20); BUN (Urea Nitrogen) 28 mg/dL (9.8-20.1); Bilirubin, Direct 7.9 mg/dL (0.1-0.3); Bilirubin, Total 22.9 mg/dL (0.2-1.2); Calc. Creatinine Clearance 80 mL/min (70-130); Calcium 10.4 mg/dL (7.8-10.44); Carbon Dioxide 17 mmol/L (22-29); Chloride 122 mmol/L (98-107); Glucose 124 mg/dL (70-105); Magnesium 2.3 mg/dL (1.6-2.6); Phosphorus 2.4 mg/dL (2.3-4.7); Potassium 3.6 mmol/L (3.5-5.1); Protein, Total 5.7 g/dL (6.0-8.3); Sodium 147 mmol/L (136-145)
[2020-07-29] MEDS: Albumin 25% 25 GM/100 ML BOT IVPB SCH (09:02)
[2020-07-29] MEDS: Rifaximin 550 MG TAB PO SCH ×2 (09:03→19:36)
[2020-07-29] MEDS: Pantoprazole 40 MG VIAL IVP SCH ×2 (09:03→19:36)
[2020-07-29] MEDS: Dextrose 5% in Water 1,000 ML IV SCH (11:00)
[2020-07-29] MEDS: Sodium Chloride 0.9% 1,000 ML IV SCH (20:49)
[2020-07-29] MEDS ORDERED: Lorazepam 2 MG/ML VIAL ONE (21:38)
[2020-07-29] MEDS ORDERED: Lorazepam 2 MG/ML VIAL SLOW IVP SCH (21:45)
[2020-07-30] MEDS: Thiamine HCl 200 MG/2 ML VIAL SLOW IVP SCH (02:11)
[2020-07-30] MEDS: Multivitamins, Adult 10 ML, Folic Acid 1 MG in Dextrose 5 %-0.45 % NaCl 1,000 ML IV SCH (02:11)
[2020-07-30] MEDS: Dextrose 5% in Water 1,000 ML IV SCH ×2 (04:34→12:53)
[2020-07-30 04:41] LABS: Hemoglobin 6.2 g/dL (12.0-16.0); Mean Corpuscular HGB CONC 32.9 g/dL (32.0-36.0); Mean Corpuscular Hemoglobin 32.5 pg (27.0-31.0); Mean Corpuscular Volume 98.6 fL (78.0-98.0); Mean Platelet Volume 9.2 fL (7.4-10.4); Platelet Count 26 thou/uL (130-400); RBC Distribution Width 18.9 % (11.5-14.5); White Blood Cell (WBC) Count 20.2 thou/uL (4.8-10.8)
[2020-07-30 04:54] LABS: INR-International Normal Ratio 4.5
[2020-07-30 04:57] LABS: ALT (SGPT) 16 U/L (8-55); AST (SGOT) 24 U/L (5-34); Alkaline Phosphatase 79 U/L (40-110); Bilirubin, Direct Greater than 10.0 mg/dL (0.1-0.3); Bilirubin, Total 24.2 mg/dL (0.2-1.2); Phosphorus 5.1 mg/dL (2.3-4.7); Protein, Total 5.7 g/dL (6.0-8.3)
[2020-07-30 05:01] LABS: Anion Gap 14 mmol/L (10-20); BUN (Urea Nitrogen) 37 mg/dL (9.8-20.1); Calc. Creatinine Clearance 50 mL/min (70-130); Carbon Dioxide 15 mmol/L (22-29); Chloride 120 mmol/L (98-107); Glucose 153 mg/dL (70-105); Magnesium 2.2 mg/dL (1.6-2.6); Potassium 4.1 mmol/L (3.5-5.1); Sodium 145 mmol/L (136-145)
[2020-07-30 05:02] LABS: Lymphocytes 11 % (21-51); MDiff Complete? YES; Metamyelocyte 3 % (0-0); Monocytes 5 % (0-10); Neutrophil 81 % (42-75); Platelet Morphology Comment Appears Decreased
[2020-07-30] MEDS: Rifaximin 550 MG TAB PO SCH ×2 (09:12→21:16)
[2020-07-30] MEDS: Pantoprazole 40 MG VIAL IVP SCH (09:12)
[2020-07-30] MEDS: cefTRIAXone\\ROCEPHIN 1 GM in Sodium Chloride 0.9% 100 ML IVPB SCH (09:24)
[2020-07-30] MEDS ORDERED: Sodium Bicarbonate Tab 325 MG TAB PER TUBE PRN (09:45)
[2020-07-30] MEDS ORDERED: Pancrelipase DR 12,000 1 CAP FS PRN (09:45)
[2020-07-30] MEDS: Pantoprazole 40 MG GRANULES PACKET PER TUBE SCH (21:16)
[2020-07-30 23:22] LABS: INR-International Normal Ratio 2.9; Prothrombin Time 31.1 sec (12.0-14.7)
[2020-07-30 23:48] LABS: Hemoglobin 5.7 g/dL (12.0-16.0)
[2020-07-31] MEDS: Thiamine HCl 200 MG/2 ML VIAL SLOW IVP SCH (02:33)
[2020-07-31] MEDS: Multivitamins, Adult 10 ML, Folic Acid 1 MG in Dextrose 5 %-0.45 % NaCl 1,000 ML IV SCH (02:33)
[2020-07-31] MEDS: Dextrose 5% in Water 1,000 ML IV SCH ×2 (06:44→13:22)
[2020-07-31 08:06] LABS: INR-International Normal Ratio 3.2; Prothrombin Time 33.3 sec (12.0-14.7)
[2020-07-31 08:07] LABS: Hemoglobin 7.8 g/dL (12.0-16.0); Mean Corpuscular HGB CONC 32.7 g/dL (32.0-36.0); Mean Corpuscular Hemoglobin 30.6 pg (27.0-31.0); Mean Corpuscular Volume 93.7 fL (78.0-98.0); Mean Platelet Volume 11.1 fL (7.4-10.4); Platelet Count 22 thou/uL (130-400); RBC Distribution Width 16.5 % (11.5-14.5); Red Blood Cell (RBC) Count 2.55 mill/uL (4.20-5.40); White Blood Cell (WBC) Count 15.3 thou/uL (4.8-10.8)
[2020-07-31 08:14] LABS: Anion Gap 11 mmol/L (10-20); BUN (Urea Nitrogen) 41 mg/dL (9.8-20.1); Calc. Creatinine Clearance 59 mL/min (70-130); Calcium 9.6 mg/dL (7.8-10.44); Carbon Dioxide 16 mmol/L (22-29); Chloride 118 mmol/L (98-107); Glucose 131 mg/dL (70-105); Sodium 142 mmol/L (136-145)
[2020-07-31] MEDS: cefTRIAXone\\ROCEPHIN 1 GM in Sodium Chloride 0.9% 100 ML IVPB SCH (08:40)
[2020-07-31] MEDS: Pantoprazole 40 MG GRANULES PACKET PER TUBE SCH ×2 (08:40→20:00)
[2020-07-31] MEDS: Rifaximin 550 MG TAB PO SCH ×2 (08:41→20:00)
[2020-07-31] MEDS: Lorazepam 2 MG/ML VIAL SLOW IVP PRN ×3 (08:42→20:02)
[2020-07-31] MEDS ORDERED: Potassium Bicarbonate/Cit Ac 20 MEQ TAB PO SCH (08:45)
[2020-07-31 08:50] LABS: Phosphorus 3.5 mg/dL (2.3-4.7)
[2020-07-31 09:05] LABS: Band 12 % (5-11); Burr Cells SLIGHT = 2-5 cells (100X) (0-1/hpf); Lymphocytes 10 % (21-51); MDiff Complete? YES; Metamyelocyte 2 % (0-0); Monocytes 12 % (0-10); Myelocyte 1 % (0-0); Neutrophil 63 % (42-75); Platelet Morphology Comment Appears Decreased
[2020-07-31] MEDS ORDERED: Phytonadione 10 MG/ML AMP PO SCH (16:00)
[2020-07-31] MEDS ORDERED: Phytonadione 5 MG TAB PO SCH (16:00)
[2020-07-31] MEDS: Phytonadione 10 MG/ML AMP PO SCH (16:56)
[2020-07-31 18:58] LABS: Hemoglobin 6.9 g/dL (12.0-16.0)
[2020-07-31 22:51] LABS: Hemoglobin 7.1 g/dL (12.0-16.0)
[2020-08-01] MEDS: Lorazepam 2 MG/ML VIAL SLOW IVP PRN ×2 (00:01→05:33)
[2020-08-01] MEDS: Multivitamins, Adult 10 ML, Folic Acid 1 MG in Dextrose 5 %-0.45 % NaCl 1,000 ML IV SCH (00:52)
[2020-08-01] MEDS: Thiamine HCl 200 MG/2 ML VIAL SLOW IVP SCH (00:53)
[2020-08-01 03:44] LABS: Mean Corpuscular HGB CONC 33.3 g/dL (32.0-36.0); Mean Corpuscular Hemoglobin 31.3 pg (27.0-31.0); Mean Corpuscular Volume 93.8 fL (78.0-98.0); Mean Platelet Volume 10.4 fL (7.4-10.4); Platelet Count 22 thou/uL (130-400); Red Blood Cell (RBC) Count 2.24 mill/uL (4.20-5.40); White Blood Cell (WBC) Count 10.9 thou/uL (4.8-10.8)
[2020-08-01 03:48] LABS: INR-International Normal Ratio 2.7; Prothrombin Time 29.2 sec (12.0-14.7)
[2020-08-01 04:12] LABS: Anion Gap 10 mmol/L (10-20); BUN (Urea Nitrogen) 34 mg/dL (9.8-20.1); Calc. Creatinine Clearance 80 mL/min (70-130); Carbon Dioxide 18 mmol/L (22-29); Chloride 115 mmol/L (98-107); Glucose 128 mg/dL (70-105); Sodium 140 mmol/L (136-145)
[2020-08-01 04:13] LABS: Band 19 % (5-11); Burr Cells SLIGHT = 2-5 cells (100X) (0-1/hpf); Eosinophils 1 % (0-10); Lymphocytes 15 % (21-51); MDiff Complete? YES; Monocytes 8 % (0-10); Neutrophil 57 % (42-75); Platelet Morphology Comment Appears Decreased; Toxic Granulation SLIGHT
[2020-08-01 04:20] LABS: Potassium 2.9 mmol/L (3.5-5.1)
[2020-08-01] MEDS: Potassium Chloride 40 MEQ in Premix Bag 1 BAG IVPB SCH ×2 (05:33→09:01)
[2020-08-01] MEDS: Dextrose 5% in Water 1,000 ML IV SCH ×2 (08:50→20:01)
[2020-08-01] MEDS: Pantoprazole 40 MG GRANULES PACKET PER TUBE SCH (08:51)
[2020-08-01] MEDS: Rifaximin 550 MG TAB PO SCH ×2 (08:51→20:00)
[2020-08-01] MEDS: cefTRIAXone\\ROCEPHIN 1 GM in Sodium Chloride 0.9% 100 ML IVPB SCH (08:56)
[2020-08-01] MEDS: Phytonadione 10 MG/ML AMP PO SCH (18:22)
[2020-08-02] MEDS: Multivitamins, Adult 10 ML, Folic Acid 1 MG in Dextrose 5 %-0.45 % NaCl 1,000 ML IV SCH (03:29)
[2020-08-02] MEDS: Thiamine HCl 200 MG/2 ML VIAL SLOW IVP SCH (03:34)
[2020-08-02 04:51] LABS: Anion Gap 10 mmol/L (10-20); BUN (Urea Nitrogen) 24 mg/dL (9.8-20.1); Calc. Creatinine Clearance 107 mL/min (70-130); Calcium 9.5 mg/dL (7.8-10.44); Carbon Dioxide 17 mmol/L (22-29); Chloride 115 mmol/L (98-107); Glucose 144 mg/dL (70-105); Potassium 3.6 mmol/L (3.5-5.1); Sodium 138 mmol/L (136-145)
[2020-08-02 05:01] LABS: ALT (SGPT) 27 U/L (8-55); AST (SGOT) 39 U/L (5-34); Albumin 2.3 g/dL (3.5-5.0); Alkaline Phosphatase 85 U/L (40-110); Bilirubin, Direct 7.9 mg/dL (0.1-0.3); Bilirubin, Total 18.2 mg/dL (0.2-1.2); Protein, Total 5.2 g/dL (6.0-8.3)
[2020-08-02 05:48] LABS: #Eosinphils 0.1 thou/uL (0.0-0.7); #Lymphocytes 1.4 thou/uL (1.20-3.40); #Monocytes 1.7 thou/uL (0.11-0.59); #Neutrophils 8.6 thou/uL (1.40-6.50); %Basophils 0.3 % (0.0-1.0); %Eosinophils 0.8 % (0.0-10.0); %Lymphocytes 11.5 % (21.0-51.0); %Monocytes 14.1 % (0.0-10.0); %Neutrophils 73.3 % (42.0-75.0); Hemoglobin 6.9 g/dL (12.0-16.0); Mean Corpuscular HGB CONC 33.6 g/dL (32.0-36.0); Mean Corpuscular Hemoglobin 31.8 pg (27.0-31.0); Mean Corpuscular Volume 94.6 fL (78.0-98.0); Mean Platelet Volume 10.1 fL (7.4-10.4); Platelet Count 25 thou/uL (130-400); RBC Distribution Width 17.6 % (11.5-14.5); Red Blood Cell (RBC) Count 2.18 mill/uL (4.20-5.40); White Blood Cell (WBC) Count 11.8 thou/uL (4.8-10.8)
[2020-08-02] MEDS: Pantoprazole 40 MG GRANULES PACKET PER TUBE SCH (09:10)
[2020-08-02] MEDS: Rifaximin 550 MG TAB PO SCH ×2 (09:10→20:16)
[2020-08-02] MEDS: Dextrose 5% in Water 1,000 ML IV SCH ×2 (09:19→15:15)
[2020-08-02] MEDS: cefTRIAXone\\ROCEPHIN 1 GM in Sodium Chloride 0.9% 100 ML IVPB SCH (09:58)
[2020-08-02] MEDS: Phytonadione 10 MG/ML AMP PO SCH (17:53)
[2020-08-03] MEDS: Scopolamine 1.5 mg/72 hour Patch TD SCH (00:38)
[2020-08-03] MEDS: Thiamine HCl 200 MG/2 ML VIAL SLOW IVP SCH (00:38)
[2020-08-03] MEDS: Multivitamins, Adult 10 ML, Folic Acid 1 MG in Dextrose 5 %-0.45 % NaCl 1,000 ML IV SCH (00:42)
[2020-08-03 04:24] LABS: Anion Gap 11 mmol/L (10-20); BUN (Urea Nitrogen) 20 mg/dL (9.8-20.1); Calc. Creatinine Clearance 121 mL/min (70-130); Carbon Dioxide 16 mmol/L (22-29); Chloride 112 mmol/L (98-107); Glucose 178 mg/dL (70-105); Potassium 3.2 mmol/L (3.5-5.1); Sodium 136 mmol/L (136-145)
[2020-08-03 04:35] LABS: Hemoglobin 8.5 g/dL (12.0-16.0); Mean Corpuscular HGB CONC 33.8 g/dL (32.0-36.0); Mean Corpuscular Hemoglobin 31.9 pg (27.0-31.0); Mean Corpuscular Volume 94.4 fL (78.0-98.0); RBC Distribution Width 17.3 % (11.5-14.5); Red Blood Cell (RBC) Count 2.67 mill/uL (4.20-5.40); White Blood Cell (WBC) Count 13.5 thou/uL (4.8-10.8)
[2020-08-03 04:42] LABS: #Eosinphils 0.1 thou/uL (0.0-0.7); #Lymphocytes 1.4 thou/uL (1.20-3.40); #Monocytes 1.6 thou/uL (0.11-0.59); #Neutrophils 10.4 thou/uL (1.40-6.50); %Basophils 0.3 % (0.0-1.0); %Eosinophils 0.6 % (0.0-10.0); %Lymphocytes 10.2 % (21.0-51.0); %Monocytes 11.9 % (0.0-10.0); Burr Cells SLIGHT = 2-5 cells (100X) (0-1/hpf); MDiff Complete? YES; Mean Platelet Volume 10.9 fL (7.4-10.4); Platelet Count 28 thou/uL (130-400); Platelet Morphology Comment Appears Decreased
[2020-08-03] MEDS ORDERED: Potassium Bicarbonate/Cit Ac 20 MEQ TAB PER TUBE SCH (06:45)
[2020-08-03] MEDS: cefTRIAXone\\ROCEPHIN 1 GM in Sodium Chloride 0.9% 100 ML IVPB SCH (08:13)
[2020-08-03] MEDS: Pantoprazole 40 MG GRANULES PACKET PER TUBE SCH (08:15)
[2020-08-03] MEDS: Rifaximin 550 MG TAB PO SCH ×2 (08:15→20:36)
[2020-08-03] MEDS: Dextrose 5% in Water 1,000 ML IV SCH (12:22)
[2020-08-03] MEDS: Phytonadione 10 MG/ML AMP PO SCH (17:17)
[2020-08-04] MEDS: Thiamine HCl 200 MG/2 ML VIAL SLOW IVP SCH (00:36)
[2020-08-04] MEDS: Multivitamins, Adult 10 ML, Folic Acid 1 MG in Dextrose 5 %-0.45 % NaCl 1,000 ML IV SCH (00:41)
[2020-08-04] MEDS: Dextrose 5% in Water 1,000 ML IV SCH ×2 (00:47→11:02)
[2020-08-04 05:15] LABS: Anion Gap 11 mmol/L (10-20); BUN (Urea Nitrogen) 19 mg/dL (9.8-20.1); Calc. Creatinine Clearance 123 mL/min (70-130); Carbon Dioxide 15 mmol/L (22-29); Chloride 108 mmol/L (98-107); Glucose 135 mg/dL (70-105); Potassium 3.3 mmol/L (3.5-5.1); Sodium 131 mmol/L (136-145)
[2020-08-04 05:40] LABS: Anisocytosis SLIGHT = 6-15 cells (100X) (0-5/hpf); Band 34 % (5-11); Crenated RBC SLIGHT = 1-5 cells (100X) (None Seen); Eosinophils 1 % (0-10); Hemoglobin 8.6 g/dL (12.0-16.0); Lymphocytes 7 % (21-51); MDiff Complete? YES; Mean Corpuscular HGB CONC 33.6 g/dL (32.0-36.0); Mean Corpuscular Hemoglobin 32.3 pg (27.0-31.0); Mean Corpuscular Volume 96.1 fL (78.0-98.0); Mean Platelet Volume 10.8 fL (7.4-10.4); Monocytes 6 % (0-10); Neutrophil 52 % (42-75); Platelet Count 34 thou/uL (130-400); Platelet Morphology Comment Appears Decreased; RBC Distribution Width 18.3 % (11.5-14.5); Red Blood Cell (RBC) Count 2.67 mill/uL (4.20-5.40); White Blood Cell (WBC) Count 11.4 thou/uL (4.8-10.8)
[2020-08-04] MEDS: cefTRIAXone\\ROCEPHIN 1 GM in Sodium Chloride 0.9% 100 ML IVPB SCH (07:45)
[2020-08-04] MEDS: Potassium Bicarbonate/Cit Ac 20 MEQ TAB PER TUBE SCH ×2 (07:45→08:01)
[2020-08-04] MEDS: Rifaximin 550 MG TAB PO SCH ×2 (08:02→19:42)
[2020-08-04] MEDS: Pantoprazole 40 MG GRANULES PACKET PER TUBE SCH (08:02)
[2020-08-04] MEDS ORDERED: Furosemide 40 MG/4 ML VIAL SLOW IVP SCH (09:15)
[2020-08-04 11:02] LABS: INR-International Normal Ratio 3.3
[2020-08-04] MEDS: Albumin 25% 25 GM/100 ML BOT IVPB SCH ×2 (11:10→21:18)
[2020-08-04] MEDS ORDERED: Spironolactone 25 MG TAB PO SCH (17:00)
[2020-08-04] MEDS: Spironolactone 25 MG TAB PER TUBE SCH (17:35)
[2020-08-04] MEDS: Phytonadione 10 MG/ML AMP PO SCH (17:36)
[2020-08-05] MEDS: Thiamine HCl 200 MG/2 ML VIAL SLOW IVP SCH (00:12)
[2020-08-05] MEDS: Dextrose 5% in Water 1,000 ML IV SCH ×2 (00:56→17:22)
[2020-08-05 03:23] LABS: Hemoglobin 7.5 g/dL (12.0-16.0); Mean Corpuscular HGB CONC 33.8 g/dL (32.0-36.0); Mean Corpuscular Hemoglobin 32.8 pg (27.0-31.0); Mean Platelet Volume 10.8 fL (7.4-10.4); Platelet Count 27 thou/uL (130-400); RBC Distribution Width 18.3 % (11.5-14.5); Red Blood Cell (RBC) Count 2.27 mill/uL (4.20-5.40); White Blood Cell (WBC) Count 11.5 thou/uL (4.8-10.8)
[2020-08-05 03:26] LABS: Prothrombin Time 40.1 sec (12.0-14.7)
[2020-08-05 03:48] LABS: Anion Gap 12 mmol/L (10-20); BUN (Urea Nitrogen) 18 mg/dL (9.8-20.1); Calc. Creatinine Clearance 123 mL/min (70-130); Calcium 8.8 mg/dL (7.8-10.44); Carbon Dioxide 16 mmol/L (22-29); Chloride 105 mmol/L (98-107); Glucose 139 mg/dL (70-105); Sodium 130 mmol/L (136-145)
[2020-08-05 03:53] LABS: Potassium 2.9 mmol/L (3.5-5.1)
[2020-08-05 04:28] LABS: MDiff Complete? YES
[2020-08-05 04:29] LABS: Band 24 % (5-11); Burr Cells SLIGHT = 2-5 cells (100X) (0-1/hpf); Lymphocytes 9 % (21-51); Monocytes 3 % (0-10); Neutrophil 64 % (42-75); Platelet Morphology Comment Appears Decreased; Toxic Granulation SLIGHT
[2020-08-05] MEDS: Potassium Chloride 40 MEQ in Premix Bag 1 BAG IVPB SCH ×2 (05:01→08:26)
[2020-08-05] MEDS: Albumin 25% 25 GM/100 ML BOT IVPB SCH ×3 (05:02→21:20)
[2020-08-05] MEDS ORDERED: Phytonadione 10 MG/ML AMP SLOW IVP SCH (07:45)
[2020-08-05] MEDS: Spironolactone 25 MG TAB PER TUBE SCH ×2 (08:25→17:25)
[2020-08-05] MEDS: cefTRIAXone\\ROCEPHIN 1 GM in Sodium Chloride 0.9% 100 ML IVPB SCH (08:25)
[2020-08-05] MEDS: Pantoprazole 40 MG GRANULES PACKET PER TUBE SCH (08:26)
[2020-08-05] MEDS: Rifaximin 550 MG TAB PO SCH ×2 (08:26→21:20)
[2020-08-05] MEDS ORDERED: Furosemide 40 MG/4 ML VIAL SLOW IVP SCH (09:15)
[2020-08-05] MEDS: MEROPENEM 1 GM/50 ML 1 GM in Premix Bag 1 BAG IVPB SCH ×2 (09:36→17:22)
[2020-08-05] MEDS: Metoclopramide HCl 10 MG/2 ML VIAL IVP SCH ×2 (14:08→21:20)
[2020-08-06] MEDS: Scopolamine 1.5 mg/72 hour Patch TD SCH ×2 (00:38→11:09)
[2020-08-06] MEDS: MEROPENEM 1 GM/50 ML 1 GM in Premix Bag 1 BAG IVPB SCH ×3 (00:39→16:37)
[2020-08-06] MEDS: Thiamine HCl 200 MG/2 ML VIAL SLOW IVP SCH (01:02)
[2020-08-06] MEDS ORDERED: Propofol BOLUS 1,000 MG/100 ML VIAL IV PRN (01:45)
[2020-08-06] MEDS ORDERED: Ventilator Sedation Protocol 1 EACH FS SCH (01:45)
[2020-08-06] MEDS ORDERED: DISCONTINUE PREVIOUS NARCOTIC PAIN MEDICATIONS AND BENZODIAZEPINES FS SCH (01:45)
[2020-08-06] MEDS ORDERED: Propofol 1,000 MG/100 ML VIAL IV PRN (01:45)
[2020-08-06] MEDS ORDERED: Fentanyl CADD 100 ML IV SCH (01:45)
[2020-08-06] MEDS ORDERED: Fentanyl BOLUS 250 ML IVPB PRN (01:45)
[2020-08-06] MEDS ORDERED: Morphine 2 MG/ML VIAL SLOW IVP PRN (01:45)
[2020-08-06] MEDS: Morphine 4 MG/ML VIAL SLOW IVP PRN ×4 (01:48→23:14)
[2020-08-06] MEDS ORDERED: Furosemide 40 MG/4 ML VIAL SLOW IVP SCH (03:00)
[2020-08-06 04:49] LABS: Anion Gap 14 mmol/L (10-20); BUN (Urea Nitrogen) 18 mg/dL (9.8-20.1); Calc. Creatinine Clearance 129 mL/min (70-130); Calcium 8.8 mg/dL (7.8-10.44); Carbon Dioxide 15 mmol/L (22-29); Chloride 104 mmol/L (98-107); Glucose 123 mg/dL (70-105); Potassium 3.7 mmol/L (3.5-5.1); Sodium 129 mmol/L (136-145)
[2020-08-06 05:13] LABS: Hemoglobin 7.3 g/dL (12.0-16.0); Mean Corpuscular HGB CONC 33.4 g/dL (32.0-36.0); Mean Corpuscular Hemoglobin 33.2 pg (27.0-31.0); Mean Corpuscular Volume 99.4 fL (78.0-98.0); Mean Platelet Volume 10.8 fL (7.4-10.4); Platelet Count 29 thou/uL (130-400); RBC Distribution Width 18.2 % (11.5-14.5); Red Blood Cell (RBC) Count 2.19 mill/uL (4.20-5.40); White Blood Cell (WBC) Count 9.5 thou/uL (4.8-10.8)
[2020-08-06 05:31] LABS: #Lymphocytes 0.8 thou/uL (1.20-3.40); #Monocytes 0.6 thou/uL (0.11-0.59); #Neutrophils 8.1 thou/uL (1.40-6.50); %Basophils 0.2 % (0.0-1.0); %Eosinophils 0.3 % (0.0-10.0); %Lymphocytes 7.9 % (21.0-51.0); %Monocytes 6.1 % (0.0-10.0); %Neutrophils 85.4 % (42.0-75.0); Anisocytosis MODERATE=16-30 cells (100X) (0-5/hpf); MDiff Complete? YES; Platelet Morphology Comment Appears Decreased
[2020-08-06] MEDS: Albumin 25% 25 GM/100 ML BOT IVPB SCH (05:31)
[2020-08-06] MEDS: Metoclopramide HCl 10 MG/2 ML VIAL IVP SCH ×3 (05:31→21:19)
[2020-08-06] MEDS: Dextrose 5% in Water 1,000 ML IV SCH (05:32)
[2020-08-06 07:24] LABS: INR-International Normal Ratio 4.5
[2020-08-06] MEDS: Sodium Chloride 0.9% 1,000 ML IV SCH (09:09)
[2020-08-06] MEDS: Rifaximin 550 MG TAB PO SCH ×2 (09:39→20:23)
[2020-08-06] MEDS: Phytonadione 5 MG TAB PO SCH (09:39)
[2020-08-06] MEDS: Pantoprazole 40 MG GRANULES PACKET PER TUBE SCH (09:39)
[2020-08-06] MEDS: Spironolactone 25 MG TAB PER TUBE SCH ×2 (09:39→16:37)
[2020-08-06] MEDS ORDERED: Acetaminophen 500 MG TAB PO PRN (10:30)
[2020-08-06] MEDS ORDERED: Hyoscyamine Sulfate SL 0.125 mg Tablet PO PRN (10:51)
[2020-08-06] MEDS: Furosemide 40 MG/4 ML VIAL SLOW IVP SCH (14:28)
[2020-08-07] MEDS: MEROPENEM 1 GM/50 ML 1 GM in Premix Bag 1 BAG IVPB SCH ×3 (00:12→17:49)
[2020-08-07] MEDS: Sodium Chloride 0.9% 1,000 ML IV SCH ×2 (00:20→17:49)
[2020-08-07] MEDS: Furosemide 40 MG/4 ML VIAL SLOW IVP SCH ×2 (05:12→14:58)
[2020-08-07] MEDS: Metoclopramide HCl 10 MG/2 ML VIAL IVP SCH ×3 (05:12→21:03)
[2020-08-07 05:37] LABS: Prothrombin Time 44.4 sec (12.0-14.7)
[2020-08-07 05:39] LABS: INR-International Normal Ratio 4.6
[2020-08-07 05:47] LABS: Anion Gap 13 mmol/L (10-20); BUN (Urea Nitrogen) 23 mg/dL (9.8-20.1); Calc. Creatinine Clearance 140 mL/min (70-130); Calcium 8.6 mg/dL (7.8-10.44); Carbon Dioxide 17 mmol/L (22-29); Chloride 104 mmol/L (98-107); Glucose 126 mg/dL (70-105); Potassium 3.9 mmol/L (3.5-5.1); Sodium 130 mmol/L (136-145)
[2020-08-07 05:51] LABS: Hemoglobin 7.6 g/dL (12.0-16.0); Mean Corpuscular HGB CONC 33.3 g/dL (32.0-36.0); Mean Corpuscular Hemoglobin 32.5 pg (27.0-31.0); Mean Corpuscular Volume 97.6 fL (78.0-98.0); Platelet Count 34 thou/uL (130-400); RBC Distribution Width 18.1 % (11.5-14.5); Red Blood Cell (RBC) Count 2.32 mill/uL (4.20-5.40); White Blood Cell (WBC) Count 15.5 thou/uL (4.8-10.8)
[2020-08-07 05:57] LABS: Band 53 % (5-11); Hypochromia SLIGHT = 6-15 cells (100X) (0-5/hpf); Lymphocytes 5 % (21-51); MDiff Complete? YES; Monocytes 8 % (0-10); Neutrophil 34 % (42-75); Platelet Morphology Comment Appears Decreased
[2020-08-07] MEDS: Thiamine 100 MG TAB PO SCH (09:24)
[2020-08-07] MEDS: Spironolactone 25 MG TAB PER TUBE SCH ×2 (09:24→17:49)
[2020-08-07] MEDS: Rifaximin 550 MG TAB PO SCH ×2 (09:24→20:13)
[2020-08-07] MEDS: Pantoprazole 40 MG GRANULES PACKET PER TUBE SCH (09:25)
[2020-08-07] MEDS: Morphine 4 MG/ML VIAL SLOW IVP PRN ×3 (11:18→23:58)
[2020-08-07] MEDS: Phytonadione 5 MG TAB PO SCH (11:24)
[2020-08-08] MEDS: Morphine 4 MG/ML VIAL SLOW IVP PRN ×2 (03:00→13:24)
[2020-08-08 04:56] LABS: Hemoglobin 7.5 g/dL (12.0-16.0); Mean Corpuscular HGB CONC 33.8 g/dL (32.0-36.0); Mean Corpuscular Volume 97.7 fL (78.0-98.0); Mean Platelet Volume 11.5 fL (7.4-10.4); Platelet Count 39 thou/uL (130-400); RBC Distribution Width 17.8 % (11.5-14.5); Red Blood Cell (RBC) Count 2.26 mill/uL (4.20-5.40); White Blood Cell (WBC) Count 16.4 thou/uL (4.8-10.8)
[2020-08-08 05:08] LABS: Anion Gap 13 mmol/L (10-20); BUN (Urea Nitrogen) 28 mg/dL (9.8-20.1); Calc. Creatinine Clearance 171 mL/min (70-130); Calcium 8.6 mg/dL (7.8-10.44); Carbon Dioxide 16 mmol/L (22-29); Chloride 105 mmol/L (98-107); Glucose 124 mg/dL (70-105); Potassium 4.1 mmol/L (3.5-5.1); Sodium 130 mmol/L (136-145)
[2020-08-08] MEDS: Metoclopramide HCl 10 MG/2 ML VIAL IVP SCH ×3 (05:18→21:29)
[2020-08-08] MEDS: Furosemide 40 MG/4 ML VIAL SLOW IVP SCH ×2 (05:18→13:24)
[2020-08-08 05:44] LABS: Band 40 % (5-11); Lymphocytes 2 % (21-51); MDiff Complete? YES; Monocytes 14 % (0-10); Neutrophil 43 % (42-75); Nucleated RBC 1 % (0); Platelet Morphology Comment Appears Decreased
[2020-08-08] MEDS: Pantoprazole 40 MG GRANULES PACKET PER TUBE SCH (09:31)
[2020-08-08] MEDS: Rifaximin 550 MG TAB PO SCH ×2 (09:31→21:29)
[2020-08-08] MEDS: Thiamine 100 MG TAB PO SCH (09:31)
[2020-08-08] MEDS: Spironolactone 25 MG TAB PER TUBE SCH ×2 (09:32→17:47)
[2020-08-08] MEDS: MEROPENEM 1 GM/50 ML 1 GM in Premix Bag 1 BAG IVPB SCH ×3 (09:34→17:46)
[2020-08-08] MEDS: Sodium Chloride 0.9% 1,000 ML IV SCH (09:36)
[2020-08-08] MEDS: Phytonadione 5 MG TAB PO SCH (09:37)
[2020-08-09] MEDS: MEROPENEM 1 GM/50 ML 1 GM in Premix Bag 1 BAG IVPB SCH ×3 (00:45→16:40)
[2020-08-09] MEDS: Morphine 4 MG/ML VIAL SLOW IVP PRN (01:00)
[2020-08-09] MEDS: Sodium Chloride 0.9% 1,000 ML IV SCH ×2 (01:05→16:59)
[2020-08-09 05:07] LABS: Hemoglobin 7.3 g/dL (12.0-16.0); Mean Corpuscular HGB CONC 34.1 g/dL (32.0-36.0); Mean Corpuscular Hemoglobin 33.3 pg (27.0-31.0); Mean Corpuscular Volume 97.5 fL (78.0-98.0); Platelet Count 45 thou/uL (130-400); RBC Distribution Width 17.7 % (11.5-14.5); Red Blood Cell (RBC) Count 2.19 mill/uL (4.20-5.40); White Blood Cell (WBC) Count 18.5 thou/uL (4.8-10.8)
[2020-08-09 05:35] LABS: Anion Gap 11 mmol/L (10-20); BUN (Urea Nitrogen) 34 mg/dL (9.8-20.1); Calc. Creatinine Clearance 93 mL/min (70-130); Calcium 8.7 mg/dL (7.8-10.44); Carbon Dioxide 18 mmol/L (22-29); Chloride 106 mmol/L (98-107); Glucose 115 mg/dL (70-105); Potassium 4.1 mmol/L (3.5-5.1); Sodium 131 mmol/L (136-145)
[2020-08-09 05:36] LABS: Band 34 % (5-11); Eosinophils 1 % (0-10); Hypochromia SLIGHT = 6-15 cells (100X) (0-5/hpf); Lymphocytes 9 % (21-51); MDiff Complete? YES; Monocytes 12 % (0-10); Neutrophil 38 % (42-75); Nucleated RBC 4 % (0); Platelet Morphology Comment Appears Decreased; Reactive Lymphocytes 6 % (0-10)
[2020-08-09] MEDS: Metoclopramide HCl 10 MG/2 ML VIAL IVP SCH ×3 (05:44→21:18)
[2020-08-09] MEDS: Furosemide 40 MG/4 ML VIAL SLOW IVP SCH ×2 (05:44→12:55)
[2020-08-09] MEDS: Pantoprazole 40 MG GRANULES PACKET PER TUBE SCH (07:45)
[2020-08-09] MEDS: Spironolactone 25 MG TAB PER TUBE SCH ×2 (07:45→16:41)
[2020-08-09] MEDS: Thiamine 100 MG TAB PO SCH (07:46)
[2020-08-09] MEDS: Rifaximin 550 MG TAB PO SCH ×2 (07:46→20:18)
[2020-08-09] MEDS: Phytonadione 5 MG TAB PO SCH (08:11)
[2020-08-09] MEDS ORDERED: Furosemide 40 MG/4 ML VIAL SLOW IVP SCH (11:00)
[2020-08-09] MEDS ORDERED: Potassium Bicarbonate/Cit Ac 20 MEQ TAB PO SCH (11:15)
[2020-08-09] MEDS: Scopolamine 1.5 mg/72 hour Patch TD SCH (11:18)
[2020-08-10] MEDS: MEROPENEM 1 GM/50 ML 1 GM in Premix Bag 1 BAG IVPB SCH ×3 (00:28→16:33)
[2020-08-10 04:40] LABS: Hemoglobin 6.9 g/dL (12.0-16.0); Mean Corpuscular HGB CONC 34.8 g/dL (32.0-36.0); Mean Corpuscular Volume 97.9 fL (78.0-98.0); Mean Platelet Volume 9.8 fL (7.4-10.4); Platelet Count 48 thou/uL (130-400); Red Blood Cell (RBC) Count 2.02 mill/uL (4.20-5.40)
[2020-08-10 05:09] LABS: Anion Gap 11 mmol/L (10-20); BUN (Urea Nitrogen) 46 mg/dL (9.8-20.1); Calc. Creatinine Clearance 57 mL/min (70-130); Calcium 8.7 mg/dL (7.8-10.44); Carbon Dioxide 19 mmol/L (22-29); Chloride 106 mmol/L (98-107); Glucose 121 mg/dL (70-105); Potassium 4.6 mmol/L (3.5-5.1); Sodium 131 mmol/L (136-145)
[2020-08-10 05:15] LABS: Band 4 % (5-11); Lymphocytes 14 % (21-51); MDiff Complete? YES; Metamyelocyte 6 % (0-0); Monocytes 8 % (0-10); Neutrophil 68 % (42-75); Nucleated RBC 5 % (0); Platelet Morphology Comment Appears Decreased; White Blood Cell (WBC) Count 22.4 thou/uL (4.8-10.8)
[2020-08-10] MEDS: Metoclopramide HCl 10 MG/2 ML VIAL IVP SCH ×3 (06:05→21:49)
[2020-08-10] MEDS: Furosemide 40 MG/4 ML VIAL SLOW IVP SCH (06:05)
[2020-08-10] MEDS: Spironolactone 25 MG TAB PER TUBE SCH (07:09)
[2020-08-10] MEDS: Pantoprazole 40 MG GRANULES PACKET PER TUBE SCH (07:09)
[2020-08-10] MEDS: Rifaximin 550 MG TAB PO SCH ×2 (07:09→20:11)
[2020-08-10] MEDS: Phytonadione 5 MG TAB PO SCH (07:10)
[2020-08-10] MEDS: Sodium Chloride 0.9% 1,000 ML IV SCH (07:25)
[2020-08-10] MEDS: Thiamine 100 MG TAB PO SCH (07:25)
[2020-08-10 10:07] LABS: PTT 63.9 sec (22.9-36.1); Prothrombin Time 39.8 sec (12.0-14.7)
[2020-08-10] MEDS ORDERED: Phytonadione 10 MG in Sodium Chloride 0.9% 50 ML IVPB SCH (11:15)
[2020-08-10] MEDS: Lorazepam 2 MG/ML VIAL SLOW IVP PRN ×2 (17:55→20:11)
[2020-08-11] MEDS: MEROPENEM 1 GM/50 ML 1 GM in Premix Bag 1 BAG IVPB SCH ×3 (01:28→17:17)
[2020-08-11 04:06] LABS: Anion Gap 14 mmol/L (10-20); BUN (Urea Nitrogen) 56 mg/dL (9.8-20.1); Calc. Creatinine Clearance 67 mL/min (70-130); Calcium 8.4 mg/dL (7.8-10.44); Carbon Dioxide 18 mmol/L (22-29); Chloride 106 mmol/L (98-107); Glucose 119 mg/dL (70-105); Potassium 4.6 mmol/L (3.5-5.1); Sodium 133 mmol/L (136-145)
[2020-08-11 04:41] LABS: Anisocytosis SLIGHT = 6-15 cells (100X) (0-5/hpf); Band 24 % (5-11); Eosinophils 1 % (0-10); Hemoglobin 7.9 g/dL (12.0-16.0); Lymphocytes 14 % (21-51); MDiff Complete? YES; Mean Corpuscular HGB CONC 34.5 g/dL (32.0-36.0); Mean Corpuscular Volume 98.8 fL (78.0-98.0); Mean Platelet Volume 9.7 fL (7.4-10.4); Metamyelocyte 4 % (0-0); Monocytes 6 % (0-10); Myelocyte 6 % (0-0); Neutrophil 45 % (42-75); Nucleated RBC 8 % (0); Platelet Count 46 thou/uL (130-400); Platelet Morphology Comment Appears Decreased; RBC Distribution Width 18.7 % (11.5-14.5); Red Blood Cell (RBC) Count 2.32 mill/uL (4.20-5.40); Toxic Granulation SLIGHT; White Blood Cell (WBC) Count 24.6 thou/uL (4.8-10.8)
[2020-08-11] MEDS: Lorazepam 2 MG/ML VIAL SLOW IVP PRN (05:13)
[2020-08-11] MEDS: Metoclopramide HCl 10 MG/2 ML VIAL IVP SCH ×3 (05:13→21:30)
[2020-08-11] MEDS: Sodium Chloride 0.9% 1,000 ML IV SCH ×2 (05:14→13:27)
[2020-08-11] MEDS ORDERED: Fentanyl 100 MCG/2 ML VIAL ONE ×3 (07:10→10:22)
[2020-08-11] MEDS ORDERED: Midazolam HCl 2 mg/2 ml Vial ONE ×2 (07:10→10:22)
[2020-08-11] MEDS ORDERED: Lidocaine 1% w/Epinephrine 1:100K 20 ML VIAL ONE (07:11)
[2020-08-11] MEDS ORDERED: Vecuronium 10 MG VIAL ONE (07:15)
[2020-08-11] MEDS: Pantoprazole 40 MG GRANULES PACKET PER TUBE SCH (11:18)
[2020-08-11] MEDS: Phytonadione 5 MG TAB PO SCH (11:18)
[2020-08-11] MEDS: Rifaximin 550 MG TAB PO SCH ×2 (11:19→21:23)
[2020-08-11] MEDS: Thiamine 100 MG TAB PO SCH (11:19)
[2020-08-11 17:39] LABS: Hemoglobin 6.7 g/dL (12.0-16.0); Mean Corpuscular HGB CONC 34.1 g/dL (32.0-36.0); Mean Corpuscular Hemoglobin 33.9 pg (27.0-31.0); Mean Corpuscular Volume 99.2 fL (78.0-98.0); RBC Distribution Width 18.6 % (11.5-14.5); Red Blood Cell (RBC) Count 1.98 mill/uL (4.20-5.40); White Blood Cell (WBC) Count 21.5 thou/uL (4.8-10.8)
[2020-08-11 17:50] LABS: INR-International Normal Ratio 2.7; PTT 52.1 sec (22.9-36.1); Prothrombin Time 29.2 sec (12.0-14.7)
[2020-08-11 18:04] LABS: Anisocytosis SLIGHT = 6-15 cells (100X) (0-5/hpf); Band 42 % (5-11); Burr Cells SLIGHT = 2-5 cells (100X) (0-1/hpf); Crenated RBC SLIGHT = 1-5 cells (100X) (None Seen); Eosinophils 1 % (0-10); Lymphocytes 9 % (21-51); MDiff Complete? YES; Monocytes 4 % (0-10); Myelocyte 3 % (0-0); Neutrophil 40 % (42-75); Nucleated RBC 5 % (0); Platelet Count 37 thou/uL (130-400); Platelet Morphology Comment Appears Decreased; Reactive Lymphocytes 1 % (0-10)
[2020-08-11 19:12] LABS: INR-International Normal Ratio 2.8; PTT 52.4 sec (22.9-36.1); Prothrombin Time 29.8 sec (12.0-14.7)
[2020-08-11 23:20] LABS: Hemoglobin 6.5 g/dL (12.0-16.0); Mean Corpuscular HGB CONC 35.1 g/dL (32.0-36.0); Mean Corpuscular Hemoglobin 33.9 pg (27.0-31.0); Mean Corpuscular Volume 96.8 fL (78.0-98.0); Mean Platelet Volume 9.5 fL (7.4-10.4); Platelet Count 30 thou/uL (130-400); RBC Distribution Width 17.4 % (11.5-14.5)
[2020-08-12 00:10] LABS: Band 35 % (5-11); Hypochromia SLIGHT = 6-15 cells (100X) (0-5/hpf); Lymphocytes 8 % (21-51); MDiff Complete? YES; Monocytes 4 % (0-10); Neutrophil 53 % (42-75); Nucleated RBC 5 % (0); Platelet Morphology Comment Appears Adequate
[2020-08-12] MEDS: MEROPENEM 1 GM/50 ML 1 GM in Premix Bag 1 BAG IVPB SCH ×3 (01:17→16:12)
[2020-08-12 04:24] LABS: Hemoglobin 5.4 g/dL (12.0-16.0); INR-International Normal Ratio 3.2; Mean Corpuscular HGB CONC 33.9 g/dL (32.0-36.0); Mean Corpuscular Hemoglobin 32.9 pg (27.0-31.0); Mean Corpuscular Volume 96.9 fL (78.0-98.0); Mean Platelet Volume 9.8 fL (7.4-10.4); PTT 54.8 sec (22.9-36.1); Platelet Count 31 thou/uL (130-400); Prothrombin Time 33.4 sec (12.0-14.7); RBC Distribution Width 17.3 % (11.5-14.5); Red Blood Cell (RBC) Count 1.63 mill/uL (4.20-5.40); White Blood Cell (WBC) Count 19.5 thou/uL (4.8-10.8)
[2020-08-12 04:32] LABS: Anion Gap 16 mmol/L (10-20); BUN (Urea Nitrogen) 61 mg/dL (9.8-20.1); Calc. Creatinine Clearance 71 mL/min (70-130); Carbon Dioxide 16 mmol/L (22-29); Chloride 107 mmol/L (98-107); Glucose 75 mg/dL (70-105); Magnesium 1.8 mg/dL (1.6-2.6); Phosphorus 5.4 mg/dL (2.3-4.7); Sodium 134 mmol/L (136-145)
[2020-08-12 04:42] LABS: Band 66 % (5-11); Eosinophils 2 % (0-10); Hypochromia SLIGHT = 6-15 cells (100X) (0-5/hpf); Lymphocytes 6 % (21-51); MDiff Complete? YES; Metamyelocyte 2 % (0-0); Monocytes 7 % (0-10); Neutrophil 17 % (42-75); Nucleated RBC 3 % (0); Platelet Morphology Comment Appears Decreased; Polychromasia SLIGHT = 2-3 cells (100X) (0-2/hpf)
[2020-08-12] MEDS ORDERED: Magnesium 2 GM/50 ML 2 GM in Premix Bag 1 BAG IVPB SCH (06:15)
[2020-08-12] MEDS: Metoclopramide HCl 10 MG/2 ML VIAL IVP SCH (06:37)
[2020-08-12] MEDS: Sodium Chloride 0.9% 1,000 ML IV SCH (06:38)
[2020-08-12] MEDS: Pantoprazole 40 MG GRANULES PACKET PER TUBE SCH (08:57)
[2020-08-12] MEDS: Thiamine 100 MG TAB PO SCH (08:57)
[2020-08-12] MEDS: Phytonadione 5 MG TAB PO SCH (08:57)
[2020-08-12] MEDS: Rifaximin 550 MG TAB PO SCH ×2 (08:57→22:05)
[2020-08-12] MEDS ORDERED: Phenylephrine 40 MG in Sodium Chloride 0.9% 250 ML 250 ML IVPB PRN (09:14)
[2020-08-12] MEDS ORDERED: Norepinephrine 8 MG/0.9% NS 250 ML IVPB PRN (09:14)
[2020-08-12] MEDS ORDERED: Calcium Chloride 1 GM/10 ML Abboject SYRINGE IVP SCH (09:15)
[2020-08-12] MEDS: Scopolamine 1.5 mg/72 hour Patch TD SCH (11:12)
[2020-08-12] MEDS ORDERED: HUM PROTHROMBIN CPLX(PCC)4FACT 1,000 UNIT in Admixture Fee 1 EACH IV SCH (11:15)
[2020-08-12 11:23] LABS: Prothrombin Time 32.2 sec (12.0-14.7)
[2020-08-13] MEDS: MEROPENEM 1 GM/50 ML 1 GM in Premix Bag 1 BAG IVPB SCH (00:10)
[2020-08-13] MEDS: Sodium Chloride 0.9% 1,000 ML IV SCH ×2 (05:14→18:15)
[2020-08-13 06:11] LABS: Hemoglobin 6.1 g/dL (12.0-16.0); Mean Corpuscular HGB CONC 35.4 g/dL (32.0-36.0); Mean Corpuscular Hemoglobin 32.1 pg (27.0-31.0); Mean Corpuscular Volume 90.5 fL (78.0-98.0); Mean Platelet Volume 9.8 fL (7.4-10.4); Platelet Count 27 thou/uL (130-400); RBC Distribution Width 18.3 % (11.5-14.5); Red Blood Cell (RBC) Count 1.89 mill/uL (4.20-5.40)
[2020-08-13 06:32] LABS: Anion Gap 18 mmol/L (10-20); BUN (Urea Nitrogen) 74 mg/dL (9.8-20.1); Calc. Creatinine Clearance 39 mL/min (70-130); Carbon Dioxide 15 mmol/L (22-29); Chloride 107 mmol/L (98-107); Glucose 69 mg/dL (70-105); Potassium 5.9 mmol/L (3.5-5.1); Sodium 134 mmol/L (136-145)
[2020-08-13 06:45] LABS: Anisocytosis SLIGHT = 6-15 cells (100X) (0-5/hpf); Band 13 % (5-11); Eosinophils 2 % (0-10); Lymphocytes 20 % (21-51); MDiff Complete? YES; Metamyelocyte 1 % (0-0); Monocytes 9 % (0-10); Neutrophil 53 % (42-75); Nucleated RBC 3 % (0); Platelet Morphology Comment Appears Decreased; Polychromasia SLIGHT = 2-3 cells (100X) (0-2/hpf); Reactive Lymphocytes 2 % (0-10); Tear Drops SLIGHT = 2-5 cells (100X) (0-1/hpf); Toxic Granulation SLIGHT
[2020-08-13] MEDS: Phytonadione 5 MG TAB PO SCH (09:00)
[2020-08-13] MEDS: Thiamine 100 MG TAB PO SCH (09:00)
[2020-08-13] MEDS: Pantoprazole 40 MG GRANULES PACKET PER TUBE SCH (09:00)
[2020-08-13] MEDS: Rifaximin 550 MG TAB PO SCH ×2 (09:00→20:42)
[2020-08-14] MEDS: Rifaximin 550 MG TAB PO SCH ×2 (09:12→21:16)
[2020-08-14] MEDS: Thiamine 100 MG TAB PO SCH (09:13)
[2020-08-14] MEDS: Phytonadione 5 MG TAB PO SCH (09:14)
[2020-08-14] MEDS: Pantoprazole 40 MG GRANULES PACKET PER TUBE SCH (09:14)
[2020-08-14] MEDS: Sodium Chloride 0.9% 1,000 ML IV SCH (15:30)
[2020-08-14 18:18] LABS: Hemoglobin 5.7 g/dL (12.0-16.0); Mean Corpuscular HGB CONC 35.7 g/dL (32.0-36.0); Mean Corpuscular Hemoglobin 33.6 pg (27.0-31.0); Mean Corpuscular Volume 93.9 fL (78.0-98.0); Mean Platelet Volume 9.3 fL (7.4-10.4); Platelet Count 28 thou/uL (130-400); RBC Distribution Width 22.4 % (11.5-14.5); Red Blood Cell (RBC) Count 1.71 mill/uL (4.20-5.40); White Blood Cell (WBC) Count 17.8 thou/uL (4.8-10.8)
[2020-08-14 18:28] LABS: Lactic Acid 1.9 mmol/L (0.5-2.2)
[2020-08-14 18:32] LABS: Anion Gap 16 mmol/L (10-20); BUN (Urea Nitrogen) 89 mg/dL (9.8-20.1); Calc. Creatinine Clearance 40 mL/min (70-130); Calcium 7.3 mg/dL (7.8-10.44); Carbon Dioxide 16 mmol/L (22-29); Chloride 107 mmol/L (98-107); Glucose 78 mg/dL (70-105); Magnesium 2.1 mg/dL (1.6-2.6); Potassium 5.9 mmol/L (3.5-5.1); Sodium 133 mmol/L (136-145)
[2020-08-14 18:37] LABS: Anisocytosis SLIGHT = 6-15 cells (100X) (0-5/hpf); Band 46 % (5-11); Lymphocytes 9 % (21-51); MDiff Complete? YES; Metamyelocyte 3 % (0-0); Myelocyte 5 % (0-0); Neutrophil 37 % (42-75); Nucleated RBC 1 % (0); Platelet Morphology Comment Appears Decreased
[2020-08-14] MEDS: Vancomycin HCl 1.25 GM in Sodium Chloride 0.9% 250 ML 250 ML IVPB SCH (18:43)
[2020-08-14] MEDS: MEROPENEM 1 GM/50 ML 1 GM in Premix Bag 1 BAG IVPB SCH (21:18)
[2020-08-15] MEDS: Morphine 4 MG/ML VIAL SLOW IVP PRN (04:53)
[2020-08-15 05:54] LABS: Anion Gap 16 mmol/L (10-20); BUN (Urea Nitrogen) 94 mg/dL (9.8-20.1); Calc. Creatinine Clearance 45 mL/min (70-130); Calcium 7.1 mg/dL (7.8-10.44); Carbon Dioxide 16 mmol/L (22-29); Chloride 107 mmol/L (98-107); Glucose 69 mg/dL (70-105); Magnesium 2.1 mg/dL (1.6-2.6); Potassium 5.7 mmol/L (3.5-5.1); Sodium 133 mmol/L (136-145)
[2020-08-15] MEDS: MEROPENEM 1 GM/50 ML 1 GM in Premix Bag 1 BAG IVPB SCH ×3 (06:01→22:09)
[2020-08-15 06:02] LABS: Anisocytosis MARKED = >30 cells (100X) (0-5/hpf); Band 30 % (5-11); Eosinophils 1 % (0-10); Hemoglobin 7.9 g/dL (12.0-16.0); Lymphocytes 6 % (21-51); MDiff Complete? YES; Mean Corpuscular HGB CONC 35.6 g/dL (32.0-36.0); Mean Corpuscular Hemoglobin 32.2 pg (27.0-31.0); Mean Corpuscular Volume 90.5 fL (78.0-98.0); Mean Platelet Volume 10.2 fL (7.4-10.4); Metamyelocyte 1 % (0-0); Monocytes 3 % (0-10); Myelocyte 2 % (0-0); Neutrophil 57 % (42-75); Platelet Count 26 thou/uL (130-400); Platelet Morphology Comment Appears Decreased; RBC Distribution Width 19.7 % (11.5-14.5); Red Blood Cell (RBC) Count 2.45 mill/uL (4.20-5.40); White Blood Cell (WBC) Count 16.8 thou/uL (4.8-10.8)
[2020-08-15] MEDS ORDERED: Dextrose 50% Abboject 50 ML SYRINGE ONE (06:32)
[2020-08-15] MEDS ORDERED: Dextrose 50% Abboject 50 ML SYRINGE SLOW IVP SCH (06:45)
[2020-08-15] MEDS: Sodium Chloride 0.9% 1,000 ML IV SCH (07:36)
[2020-08-15] MEDS: Pantoprazole 40 MG GRANULES PACKET PER TUBE SCH (09:20)
[2020-08-15] MEDS: Rifaximin 550 MG TAB PO SCH ×2 (09:20→20:21)
[2020-08-15] MEDS: Phytonadione 5 MG TAB PO SCH (09:20)
[2020-08-15] MEDS: Thiamine 100 MG TAB PO SCH (09:21)
[2020-08-15] MEDS: Scopolamine 1.5 mg/72 hour Patch TD SCH (11:36)
[2020-08-15] MEDS: Vancomycin HCl 1.25 GM in Sodium Chloride 0.9% 250 ML 250 ML IVPB SCH (18:01)
[2020-08-16 04:29] LABS: Anion Gap 17 mmol/L (10-20); BUN (Urea Nitrogen) 94 mg/dL (9.8-20.1); Calc. Creatinine Clearance 57 mL/min (70-130); Calcium 6.8 mg/dL (7.8-10.44); Carbon Dioxide 15 mmol/L (22-29); Chloride 110 mmol/L (98-107); Glucose 85 mg/dL (70-105); Magnesium 2.2 mg/dL (1.6-2.6); Potassium 5.6 mmol/L (3.5-5.1); Sodium 136 mmol/L (136-145)
[2020-08-16 04:44] LABS: Anisocytosis SLIGHT = 6-15 cells (100X) (0-5/hpf); Band 12 % (5-11); Burr Cells SLIGHT = 2-5 cells (100X) (0-1/hpf); Eosinophils 1 % (0-10); Hemoglobin 8.3 g/dL (12.0-16.0); Lymphocytes 5 % (21-51); MDiff Complete? YES; Macrocytosis SLIGHT = 6-15 cells (100X) (0-5/hpf); Mean Corpuscular HGB CONC 35.1 g/dL (32.0-36.0); Mean Corpuscular Hemoglobin 32.4 pg (27.0-31.0); Mean Corpuscular Volume 92.2 fL (78.0-98.0); Mean Platelet Volume 10.3 fL (7.4-10.4); Monocytes 10 % (0-10); Neutrophil 72 % (42-75); Nucleated RBC 7 % (0); Platelet Count 36 thou/uL (130-400); Platelet Morphology Comment Appears Decreased; Polychromasia SLIGHT = 2-3 cells (100X) (0-2/hpf); RBC Distribution Width 21.5 % (11.5-14.5); Red Blood Cell (RBC) Count 2.56 mill/uL (4.20-5.40); White Blood Cell (WBC) Count 16.6 thou/uL (4.8-10.8)
[2020-08-16] MEDS: Sodium Chloride 0.9% 1,000 ML IV SCH ×3 (05:10→17:17)
[2020-08-16] MEDS: MEROPENEM 1 GM/50 ML 1 GM in Premix Bag 1 BAG IVPB SCH ×2 (05:43→13:18)
[2020-08-16] MEDS ORDERED: Fentanyl BOLUS 250 ML IVPB PRN (06:36)
[2020-08-16] MEDS ORDERED: Fentanyl CADD 100 ML IV SCH (06:45)
[2020-08-16] MEDS: Thiamine 100 MG TAB PO SCH (07:51)
[2020-08-16] MEDS: Phytonadione 5 MG TAB PO SCH (07:51)
[2020-08-16] MEDS: Rifaximin 550 MG TAB PO SCH ×2 (07:52→20:38)
[2020-08-16] MEDS: Pantoprazole 40 MG GRANULES PACKET PER TUBE SCH (07:52)
[2020-08-16 10:42] LABS: INR-International Normal Ratio 3.4; PTT 58.5 sec (22.9-36.1); Prothrombin Time 35.5 sec (12.0-14.7)
[2020-08-16] MEDS: Morphine 4 MG/ML VIAL SLOW IVP PRN (19:29)
[2020-08-16] MEDS: Lorazepam 2 MG/ML VIAL SLOW IVP PRN (19:35)
[2020-08-17 04:17] LABS: INR-International Normal Ratio 3.1; Prothrombin Time 32.9 sec (12.0-14.7)
[2020-08-17 04:25] LABS: Anion Gap 17 mmol/L (10-20); BUN (Urea Nitrogen) 95 mg/dL (9.8-20.1); Calc. Creatinine Clearance 64 mL/min (70-130); Calcium 6.9 mg/dL (7.8-10.44); Carbon Dioxide 15 mmol/L (22-29); Chloride 110 mmol/L (98-107); Glucose 104 mg/dL (70-105); Magnesium 2.2 mg/dL (1.6-2.6); Sodium 137 mmol/L (136-145)
[2020-08-17 05:39] LABS: Anisocytosis MODERATE=16-30 cells (100X) (0-5/hpf); Band 20 % (5-11); Crenated RBC SLIGHT = 1-5 cells (100X) (None Seen); Hemoglobin 7.1 g/dL (12.0-16.0); Lymphocytes 6 % (21-51); MDiff Complete? YES; Mean Corpuscular HGB CONC 35.3 g/dL (32.0-36.0); Mean Corpuscular Hemoglobin 33.3 pg (27.0-31.0); Mean Corpuscular Volume 94.1 fL (78.0-98.0); Mean Platelet Volume 9.8 fL (7.4-10.4); Monocytes 2 % (0-10); Neutrophil 70 % (42-75); Nucleated RBC 5 % (0); Platelet Count 31 thou/uL (130-400); RBC Distribution Width 22.5 % (11.5-14.5); Red Blood Cell (RBC) Count 2.12 mill/uL (4.20-5.40); White Blood Cell (WBC) Count 14.3 thou/uL (4.8-10.8)
[2020-08-17] MEDS: Rifaximin 550 MG TAB PO SCH ×2 (08:50→20:52)
[2020-08-17] MEDS: Phytonadione 5 MG TAB PO SCH (08:50)
[2020-08-17] MEDS: Pantoprazole 40 MG GRANULES PACKET PER TUBE SCH (08:50)
[2020-08-17] MEDS: Thiamine 100 MG TAB PO SCH (08:51)
[2020-08-17] MEDS: Lorazepam 2 MG/ML VIAL SLOW IVP PRN (11:13)
[2020-08-17] MEDS: Morphine 4 MG/ML VIAL SLOW IVP PRN (11:13)
[2020-08-17] MEDS: Sodium Chloride 0.9% 1,000 ML IV SCH (14:34)
[2020-08-18 05:29] LABS: Anion Gap 13 mmol/L (10-20); BUN (Urea Nitrogen) 93 mg/dL (9.8-20.1); Calc. Creatinine Clearance 83 mL/min (70-130); Calcium 6.9 mg/dL (7.8-10.44); Carbon Dioxide 17 mmol/L (22-29); Chloride 114 mmol/L (98-107); Glucose 119 mg/dL (70-105); Potassium 5.1 mmol/L (3.5-5.1); Sodium 139 mmol/L (136-145)
[2020-08-18] MEDS: Sodium Chloride 0.9% 1,000 ML IV SCH (05:40)
[2020-08-18 05:53] LABS: Band 13 % (5-11); Burr Cells SLIGHT = 2-5 cells (100X) (0-1/hpf); Eosinophils 2 % (0-10); Hemoglobin 6.9 g/dL (12.0-16.0); Lymphocytes 4 % (21-51); MDiff Complete? YES; Macrocytosis SLIGHT = 6-15 cells (100X) (0-5/hpf); Mean Corpuscular HGB CONC 33.1 g/dL (32.0-36.0); Mean Corpuscular Hemoglobin 32.2 pg (27.0-31.0); Mean Corpuscular Volume 97.4 fL (78.0-98.0); Mean Platelet Volume 9.4 fL (7.4-10.4); Neutrophil 81 % (42-75); Nucleated RBC 3 % (0); Platelet Count 34 thou/uL (130-400); Platelet Morphology Comment Appears Decreased; Polychromasia SLIGHT = 2-3 cells (100X) (0-2/hpf); RBC Distribution Width 25.5 % (11.5-14.5); Red Blood Cell (RBC) Count 2.13 mill/uL (4.20-5.40); Toxic Granulation SLIGHT; White Blood Cell (WBC) Count 15.9 thou/uL (4.8-10.8)
[2020-08-18] MEDS: Phytonadione 5 MG TAB PO SCH (08:08)
[2020-08-18] MEDS: Rifaximin 550 MG TAB PO SCH ×2 (08:08→20:45)
[2020-08-18] MEDS: Thiamine 100 MG TAB PO SCH (08:08)
[2020-08-18] MEDS: Pantoprazole 40 MG GRANULES PACKET PER TUBE SCH (08:08)
[2020-08-18] MEDS: Scopolamine 1.5 mg/72 hour Patch TD SCH (09:43)
[2020-08-18] MEDS: Lorazepam 2 MG/ML VIAL SLOW IVP PRN (20:50)
[2020-08-19] MEDS: Sodium Chloride 0.9% 1,000 ML IV SCH (01:01)
[2020-08-19] MEDS: Morphine 4 MG/ML VIAL SLOW IVP PRN (02:44)
[2020-08-19] MEDS: Lorazepam 2 MG/ML VIAL SLOW IVP PRN (02:46)
[2020-08-19] MEDS: Phytonadione 5 MG TAB PO SCH (09:11)
[2020-08-19] MEDS: Thiamine 100 MG TAB PO SCH (09:11)
[2020-08-19] MEDS: Pantoprazole 40 MG GRANULES PACKET PER TUBE SCH (09:11)
[2020-08-19] MEDS: Norepinephrine 8 MG/0.9% NS 250 ML IVPB SCH ×2 (10:11→23:01)
[2020-08-19 15:51] LABS: Hemoglobin 6.6 g/dL (12.0-16.0); Mean Corpuscular HGB CONC 33.9 g/dL (32.0-36.0); Mean Corpuscular Volume 97.1 fL (78.0-98.0); Mean Platelet Volume 10.3 fL (7.4-10.4); Platelet Count 45 thou/uL (130-400); RBC Distribution Width 26.2 % (11.5-14.5); Red Blood Cell (RBC) Count 1.99 mill/uL (4.20-5.40); White Blood Cell (WBC) Count 18.8 thou/uL (4.8-10.8)
[2020-08-19 16:16] LABS: Band 31 % (5-11); Eosinophils 1 % (0-10); Lymphocytes 16 % (21-51); MDiff Complete? YES; Metamyelocyte 1 % (0-0); Neutrophil 51 % (42-75); Nucleated RBC 8 % (0)
[2020-08-20 02:55] LABS: Prothrombin Time 41.3 sec (12.0-14.7)
[2020-08-20 03:04] LABS: INR-International Normal Ratio 4.2
[2020-08-20 03:10] LABS: Hemoglobin 8.3 g/dL (12.0-16.0); Mean Corpuscular HGB CONC 33.1 g/dL (32.0-36.0); Mean Corpuscular Hemoglobin 31.3 pg (27.0-31.0); Mean Corpuscular Volume 94.5 fL (78.0-98.0); Mean Platelet Volume 10.4 fL (7.4-10.4); Platelet Count 53 thou/uL (130-400); Red Blood Cell (RBC) Count 2.65 mill/uL (4.20-5.40)
[2020-08-20 03:11] LABS: Anisocytosis MODERATE=16-30 cells (100X) (0-5/hpf); Band 7 % (5-11); Burr Cells SLIGHT = 2-5 cells (100X) (0-1/hpf); Eosinophils 1 % (0-10); Lymphocytes 14 % (21-51); MDiff Complete? YES; Macrocytosis SLIGHT = 6-15 cells (100X) (0-5/hpf); Monocytes 8 % (0-10); Neutrophil 70 % (42-75); Nucleated RBC 24 % (0); Platelet Morphology Comment Appears Decreased; Polychromasia SLIGHT = 2-3 cells (100X) (0-2/hpf)
[2020-08-20 03:38] LABS: ALT (SGPT) 26 U/L (8-55); AST (SGOT) 188 U/L (5-34); Albumin 1.8 g/dL (3.5-5.0); Alkaline Phosphatase 134 U/L (40-110); Anion Gap 13 mmol/L (10-20); BUN (Urea Nitrogen) 102 mg/dL (9.8-20.1); Bilirubin, Total 23.3 mg/dL (0.2-1.2); Calc. Creatinine Clearance 56 mL/min (70-130); Calcium 8.5 mg/dL (7.8-10.44); Carbon Dioxide 16 mmol/L (22-29); Chloride 114 mmol/L (98-107); Globulin 3.3 g/dL (2.4-3.5); Glucose 97 mg/dL (70-105); Potassium 5.4 mmol/L (3.5-5.1); Protein, Total 5.1 g/dL (6.0-8.3); Sodium 138 mmol/L (136-145)
[2020-08-20] MEDS ORDERED: Sodium Chloride 0.9% 500 ML IV SCH (04:00)
[2020-08-20] MEDS ORDERED: Metoprolol Tartrate 5 MG/5 ML VIAL IVP SCH (04:30)
[2020-08-20] MEDS: Sodium Chloride 0.9% 1,000 ML IV SCH ×4 (06:18→22:54)
[2020-08-20] MEDS: Pantoprazole 40 MG GRANULES PACKET PER TUBE SCH (08:52)
[2020-08-20] MEDS: Thiamine 100 MG TAB PO SCH (08:53)
[2020-08-20] MEDS: Phytonadione 5 MG TAB PO SCH (08:53)
[2020-08-20 11:44] LABS: Anion Gap 14 mmol/L (10-20); BUN (Urea Nitrogen) 105 mg/dL (9.8-20.1); Calc. Creatinine Clearance 57 mL/min (70-130); Calcium 8.2 mg/dL (7.8-10.44); Carbon Dioxide 15 mmol/L (22-29); Chloride 115 mmol/L (98-107); Glucose 94 mg/dL (70-105); Potassium 5.4 mmol/L (3.5-5.1); Sodium 139 mmol/L (136-145)
[2020-08-20] MEDS: Norepinephrine 8 MG/0.9% NS 250 ML IVPB SCH ×2 (12:55→21:02)
[2020-08-21] MEDS: Norepinephrine 8 MG/0.9% NS 250 ML IVPB SCH ×4 (02:33→23:36)
[2020-08-21] MEDS: Pantoprazole 40 MG GRANULES PACKET PER TUBE SCH (09:28)
[2020-08-21] MEDS: Phytonadione 5 MG TAB PO SCH (09:28)
[2020-08-21] MEDS: Thiamine 100 MG TAB PO SCH (09:28)
[2020-08-21] MEDS: Scopolamine 1.5 mg/72 hour Patch TD SCH (09:28)
[2020-08-21 09:56] LABS: Anion Gap 18 mmol/L (10-20); BUN (Urea Nitrogen) 109 mg/dL (9.8-20.1); Calc. Creatinine Clearance 55 mL/min (70-130); Calcium 7.9 mg/dL (7.8-10.44); Carbon Dioxide 12 mmol/L (22-29); Chloride 114 mmol/L (98-107); Glucose 90 mg/dL (70-105); Potassium 5.6 mmol/L (3.5-5.1); Sodium 138 mmol/L (136-145)
[2020-08-21 09:57] LABS: Hemoglobin 6.7 g/dL (12.0-16.0); MDiff Complete? YES; Mean Corpuscular Hemoglobin 32.8 pg (27.0-31.0); Mean Corpuscular Volume 96.5 fL (78.0-98.0); Platelet Count 52 thou/uL (130-400); RBC Distribution Width 25.1 % (11.5-14.5); Red Blood Cell (RBC) Count 2.05 mill/uL (4.20-5.40); White Blood Cell (WBC) Count 19.7 thou/uL (4.8-10.8)
[2020-08-21 09:58] LABS: Anisocytosis MODERATE=16-30 cells (100X) (0-5/hpf); Band 8 % (5-11); Burr Cells MODERATE= 6-15 cells (100X) (0-1/hpf); Large Platelets SLIGHT; Lymphocytes 7 % (21-51); Metamyelocyte 3 % (0-0); Monocytes 9 % (0-10); Myelocyte 1 % (0-0); Neutrophil 72 % (42-75); Nucleated RBC 7 % (0); Platelet Morphology Comment Appears Decreased; Poikilocytosis MODERATE=16-30 cells (100X) (0-5/hpf); Polychromasia SLIGHT = 2-3 cells (100X) (0-2/hpf)
[2020-08-21] MEDS: Sodium Chloride 0.9% 1,000 ML IV SCH ×2 (10:00→23:37)
[2020-08-22 05:00] LABS: #Eosinphils 0.1 thou/uL (0.0-0.7); #Lymphocytes 1.2 thou/uL (1.20-3.40); #Monocytes 0.1 thou/uL (0.11-0.59); #Neutrophils 3.9 thou/uL (1.40-6.50); %Basophils 0.6 % (0.0-1.0); %Eosinophils 2.3 % (0.0-10.0); %Monocytes 2.7 % (0.0-10.0); %Neutrophils 72.4 % (42.0-75.0); Hemoglobin 8.4 g/dL (12.0-16.0); Mean Corpuscular HGB CONC 30.6 g/dL (32.0-36.0); Mean Corpuscular Hemoglobin 32.3 pg (27.0-31.0); Mean Platelet Volume 7.4 fL (7.4-10.4); Platelet Count 235 thou/uL (130-400); RBC Distribution Width 15.5 % (11.5-14.5); Red Blood Cell (RBC) Count 2.59 mill/uL (4.20-5.40); White Blood Cell (WBC) Count 5.4 thou/uL (4.8-10.8)
[2020-08-22 05:16] LABS: Anion Gap 10 mmol/L (10-20); BUN (Urea Nitrogen) 15 mg/dL (9.8-20.1); Calc. Creatinine Clearance 180 mL/min (70-130); Calcium 8.4 mg/dL (7.8-10.44); Carbon Dioxide 35 mmol/L (22-29); Chloride 102 mmol/L (98-107); Glucose 105 mg/dL (70-105); Potassium 3.9 mmol/L (3.5-5.1); Sodium 143 mmol/L (136-145)
[2020-08-22] MEDS: Norepinephrine 8 MG/0.9% NS 250 ML IVPB SCH ×4 (05:23→20:46)
[2020-08-22] MEDS: Sodium Chloride 0.9% 1,000 ML IV SCH ×3 (05:24→15:09)
[2020-08-22 07:21] VITALS: BMI 34.1
[2020-08-22] MEDS: Thiamine 100 MG TAB PO SCH (09:40)
[2020-08-22] MEDS: Pantoprazole 40 MG GRANULES PACKET PER TUBE SCH (09:40)
[2020-08-22] MEDS: Phytonadione 5 MG TAB PO SCH (09:59)
[2020-08-23] MEDS: Sodium Chloride 0.9% 1,000 ML IV SCH ×2 (00:12→07:18)
[2020-08-23] MEDS: Norepinephrine 8 MG/0.9% NS 250 ML IVPB SCH ×3 (04:38→12:33)
[2020-08-23 06:54] LABS: Anion Gap 16 mmol/L (10-20); BUN (Urea Nitrogen) 114 mg/dL (9.8-20.1); Calc. Creatinine Clearance 54 mL/min (70-130); Calcium 7.8 mg/dL (7.8-10.44); Carbon Dioxide 11 mmol/L (22-29); Chloride 119 mmol/L (98-107); Glucose 49 mg/dL (70-105); Potassium 5.6 mmol/L (3.5-5.1); Sodium 140 mmol/L (136-145)
[2020-08-23] MEDS ORDERED: Dextrose 50% Abboject 50 ML SYRINGE ONE (07:10)
[2020-08-23] MEDS ORDERED: Dextrose 5% in Water 1,000 ML IV PRN (07:45)
[2020-08-23 08:06] LABS: Hemoglobin 5.1 g/dL (12.0-16.0); Mean Corpuscular Hemoglobin 34.8 pg (27.0-31.0); RBC Distribution Width 27.2 % (11.5-14.5); Red Blood Cell (RBC) Count 1.47 mill/uL (4.20-5.40)
[2020-08-23 08:37] LABS: Anisocytosis MARKED = >30 cells (100X) (0-5/hpf); Burr Cells MODERATE= 6-15 cells (100X) (0-1/hpf); Lymphocytes 3 % (21-51); MDiff Complete? YES; Mean Platelet Volume 10.4 fL (7.4-10.4); Monocytes 4 % (0-10); Neutrophil 93 % (42-75); Nucleated RBC 18 % (0); Platelet Count 40 thou/uL (130-400); Platelet Morphology Comment Appears Decreased; Polychromasia MODERATE = 3-4 cells (100X) (0-2/hpf); Target Cells SLIGHT = 2-5 cells (100X) (0-1/hpf); White Blood Cell (WBC) Count 12.7 thou/uL (4.8-10.8)
[2020-08-23] MEDS: Phytonadione 5 MG TAB PO SCH (08:44)
[2020-08-23] MEDS: Pantoprazole 40 MG GRANULES PACKET PER TUBE SCH (08:44)
[2020-08-23] MEDS: Thiamine 100 MG TAB PO SCH (08:44)
[2020-08-23] MEDS: Dextrose 50% Abboject 50 ML SYRINGE IVP PRN ×3 (08:49→14:09)
[2020-08-23] MEDS: Morphine 4 MG/ML VIAL SLOW IVP PRN ×2 (13:42→17:38)
[2020-08-23] MEDS: Lorazepam 2 MG/ML VIAL SLOW IVP PRN (14:10)
[2020-08-23 14:24] VITALS: BP 109/60
[2020-08-23] MEDS ORDERED: Dextrose 10% in Water 1,000 ML IV SCH (16:30)
[2020-08-23] MEDS ORDERED: Lorazepam 2 MG/ML VIAL SLOW IVP SCH (16:30)
[2020-08-23 17:54] LABS: Glucose 123 mg/dL (70-105)
[2020-08-23 18:49] VITALS: TEMP 97.9
== END 2020-08-23 18:35 | disposition expired | DRG 4 ==
LOC: ERS 10:44 → CCU 13:29 → 2SE 07-24 05:22 → CCU 07-27 00:07
PROVIDERS: ADMIT Family Medicine; ATTEND Family Medicine
PROC: 5A1935Z Respiratory Ventilation, Less than 24 Consecutive Hours (ICD-10-PCS; 2020-07-18)
PROC: 30233N1 Transfusion of Nonautologous Red Blood Cells into Peripheral Vein, Percutaneous Approach (ICD-10-PCS; 2020-07-20)
PROC: 0BH17EZ Insertion of Endotracheal Airway into Trachea, Via Natural or Artificial Opening (ICD-10-PCS; 2020-07-20)
PROC: 0D9670Z Drainage of Stomach with Drainage Device, Via Natural or Artificial Opening (ICD-10-PCS; 2020-07-20)
PROC: 30233R0 Transfusion of Autologous Platelets into Peripheral Vein, Percutaneous Approach (ICD-10-PCS; 2020-07-22)
PROC: 30233M1 Transfusion of Nonautologous Plasma Cryoprecipitate into Peripheral Vein, Percutaneous Approach (ICD-10-PCS; 2020-07-22)
PROC: 5A1955Z Respiratory Ventilation, Greater than 96 Consecutive Hours (ICD-10-PCS; principal; 2020-07-27)
PROC: 06HY33Z Insertion of Infusion Device into Lower Vein, Percutaneous Approach (ICD-10-PCS; 2020-07-27)
PROC: 0BH17EZ Insertion of Endotracheal Airway into Trachea, Via Natural or Artificial Opening (ICD-10-PCS; 2020-07-27)
PROC: 30233L1 Transfusion of Nonautologous Fresh Plasma into Peripheral Vein, Percutaneous Approach (ICD-10-PCS; 2020-07-30)
PROC: 30233K1 Transfusion of Nonautologous Frozen Plasma into Peripheral Vein, Percutaneous Approach (ICD-10-PCS; 2020-07-30)
PROC: 0B113F4 Bypass Trachea to Cutaneous with Tracheostomy Device, Percutaneous Approach (ICD-10-PCS; 2020-08-11)
PROC: 0DH63UZ Insertion of Feeding Device into Stomach, Percutaneous Approach (ICD-10-PCS; 2020-08-11)
PROC: 3E033XZ Introduction of Vasopressor into Peripheral Vein, Percutaneous Approach (ICD-10-PCS; 2020-08-19)
DX: A41.9 Sepsis, unspecified organism (principal); L89.153 Pressure ulcer of sacral region, stage 3; K72.00 Acute and subacute hepatic failure without coma; J96.01 Acute respiratory failure with hypoxia; G92 Toxic encephalopathy; J18.9 Pneumonia, unspecified organism; D65 Disseminated intravascular coagulation [defibrination syndrome]; K76.7 Hepatorenal syndrome; N17.0 Acute kidney failure with tubular necrosis; J69.0 Pneumonitis due to inhalation of food and vomit; K76.6 Portal hypertension; E87.2 Acidosis; D68.4 Acquired coagulation factor deficiency; D61.818 Other pancytopenia; K56.7 Ileus, unspecified; K56.609 Unspecified intestinal obstruction, unspecified as to partial versus complete obstruction; E87.0 Hyperosmolality and hypernatremia; E87.1 Hypo-osmolality and hyponatremia; D62 Acute posthemorrhagic anemia; G93.1 Anoxic brain damage, not elsewhere classified; I82.611 Acute embolism and thrombosis of superficial veins of right upper extremity; Z16.24 Resistance to multiple antibiotics; I47.1 Supraventricular tachycardia; T82.838A Hemorrhage due to vascular prosthetic devices, implants and grafts, initial encounter; R65.20 Severe sepsis without septic shock; K70.31 Alcoholic cirrhosis of liver with ascites; Z20.822 Contact with and (suspected) exposure to COVID-19; Z66 Do not resuscitate; Z51.5 Encounter for palliative care; K31.89 Other diseases of stomach and duodenum; E80.6 Other disorders of bilirubin metabolism; D53.9 Nutritional anemia, unspecified; K80.20 Calculus of gallbladder without cholecystitis without obstruction; K70.11 Alcoholic hepatitis with ascites; F10.20 Alcohol dependence, uncomplicated; N18.2 Chronic kidney disease, stage 2 (mild); D73.1 Hypersplenism; J40 Bronchitis, not specified as acute or chronic; R34 Anuria and oliguria; B96.20 Unspecified Escherichia coli [E. coli] as the cause of diseases classified elsewhere; I46.9 Cardiac arrest, cause unspecified; E87.70 Fluid overload, unspecified; E87.5 Hyperkalemia; E16.2 Hypoglycemia, unspecified; M79.81 Nontraumatic hematoma of soft tissue; Z78.1 Physical restraint status; Z79.899 Other long term (current) drug therapy; Z87.891 Personal history of nicotine dependence; Z91.14 Patient's other noncompliance with medication regimen; L89.322 Pressure ulcer of left buttock, stage 2; L89.312 Pressure ulcer of right buttock, stage 2
CPT/HCPCS: 0240U; 31500; 36415; 36416; 36430; 36600; 51702; 70450; 71045; 74018; 74019; 74176; 74177; 76705; 80048; 80053; 80076; 80202; 80306; 80307; 81003; 81015; 82140; 82274; 82553; 82805; 83605; 83690; 83735; 83880; 84100; 84443; 84484; 85025; 85384; 85610; 85730; 86140; 86850; 86900; 86901; 87040; 87070; 87077; 87086; 87186; 87205; 93005; 93010; 94002; 94003; 96365; 96366; 96368; 96375; 99292; C9113; C9132; J0692; J0696; J1940; J1956; J2060; J2185; J2250; J2270; J2405; J2543; J2765; J3010; J3370; J3411; J3430; J3475; J3480; J3490; J7042; J7050; P9012; P9016; P9035; P9047; P9059; Q9967